=== PATIENT | male | born 1970 | race Caucasian/White ===

== ENCOUNTER 2020-09-07 01:43 | Observation (INO) | payer BC, OTHER ==
--- NOTE | 2020-09-07 02:09 | ED ---
Recheck HPI - General Chief Complaint: Abdominal Pain Stated Complaint: Abd Pain Time Seen by Provider: 09/07/20 01:54 Source: patient, EMS, RN notes reviewed, old records reviewed Mode of arrival: EMS Limitations: no limitations - History of Present Illness Initial Comments: This is a 49-year-old male DF for evaluation patient presents today for evalua tion of persistent recurrent pain abdominal pain that is severe with nausea vomiting some dizziness. Also had a headache. Patient accepted in transfer for evaluation. Patient's found to have a renal cell carcinoma with possible tumor on CT needs clarification by MR. Patient is complaining of abdominal pain now is dizziness. Patient's pain is intractable. MD Complaint: medication refill request, other (Severe pain) Returns Today for: persistent/worsening pain related to initial visit Symptoms Since Prior Visit: worsening pain Associated Symptoms: nausea, abdominal pain - Related Data Home Medications Medication Instructions Recorded Confirmed Ibuprofen [Motrin] 200 mg PO Q6HR PRN 05/20/14 05/20/14 Omeprazole [PriLOSEC] 20 mg PO AC-BRKFST 05/20/14 05/20/14 Allergies Allergy/AdvReac Type Severity Reaction Status Date / Time No Known Allergies Allergy Verified 05/20/14 17:43 Review of Systems ROS Statement: Those systems with pertinent positive or pertinent negative responses have been documented in the HPI. ROS Other: All systems not noted in ROS Statement are negative. Past Medical History Past Medical History: GERD/Reflux History of Any Multi-Drug Resistant Organisms: None Reported Past Surgical History: Appendectomy, Cholecystectomy, Hernia Repair Additional Past Surgical History / Comment(s): cataract Past Psychological History: No Psychological Hx Reported Smoking Status: Current every day smoker Past Alcohol Use History: Occasional Past Drug Use History: None Reported - Past Family History Father Family Medical History: No Reported History General Exam General appearance: alert, in no apparent distress, anxious Head exam: Present: atraumatic, normocephalic, normal inspection Eye exam: Present: normal appearance, PERRL, EOMI. Absent: scleral icterus, conjunctival injection, periorbital swelling ENT exam: Present: normal exam, mucous membranes moist Neck exam: Present: normal inspection. Absent: tenderness, meningismus, lymphadenopathy Respiratory exam: Present: normal lung sounds bilaterally. Absent: respiratory distress, wheezes, rales, rhonchi, stridor Cardiovascular Exam: Present: regular rate, normal rhythm, normal heart sounds. Absent: systolic murmur, diastolic murmur, rubs, gallop, clicks GI/Abdominal exam: Present: soft, normal bowel sounds. Absent: distended, tenderness, guarding, rebound, rigid Extremities exam: Present: normal inspection, full ROM, normal capillary refill. Absent: tenderness, pedal edema, joint swelling, calf tenderness Back exam: Present: normal inspection Neurological exam: Present: alert, oriented X3, CN II-XII intact Psychiatric exam: Present: normal affect, normal mood Skin exam: Present: warm, dry, intact, normal color. Absent: rash Course Vital Signs 09/07/20 01:53 Temperature 98.7 F Pulse Rate 59 L Respiratory 18 Rate Blood Pressure 137/90 O2 Sat by Pulse 97 Oximetry - Reevaluation(s) Reevaluation #1: 09/07/20 02:12 Medical record is reviewed 09/07/20 02:12 Transferring paperwork is reviewed 09/07/20 02:12 Did speak with transferring physician regarding patient Reevaluation #2: 09/07/20 02:12 Patient started to be In significant pain here in the ER Reevaluation #3: 09/07/20 02:12 Patient informed of results and plan questions answered Medical Decision Making - Medical Decision Making 49 male DF for evaluation severe abdominal pain. Intractable pain. Patient be admitted for pain control, he does have incidental renal cell carcinoma possible brain tumor which will be admitted for neurology an MR today. - EKG Data -: EKG Interpreted by Me (EKG is sinus rhythm 66 [place] 146 QRS 94 QTC 427) Disposition Clinical Impression: Abdominal pain, Renal cell carcinoma, Intractable pain, Chest pain Disposition: ADMITTED IP TO THIS HOSP Condition: Good Is patient prescribed a controlled substance at d/c from ED?: No Referrals: Nonstaff,Physician [Primary Care Provider] - 1-2 days
[2020-09-07] MEDS ORDERED: NALOXONE 0.4 MG/ML 1 ML VIAL IV PRN (02:17)
[2020-09-07] MEDS ORDERED: ONDANSETRON 4 MG/2 ML VIAL IVP PRN (02:17)
[2020-09-07] MEDS: MORPHINE SULFATE 4 MG/ML SYRINGE IV PRN ×2 (02:40→13:29)
[2020-09-07 02:44] LABS: INR 1.1 (<1.2); Partial Thromboplastin Time 23.7 sec (22.0-30.0); Prothrombin Time 11.3 sec (9.0-12.0)
[2020-09-07] MEDS: SODIUM CHLORIDE 0.9% 1,000 ML IV SCH ×2 (02:45→10:17)
[2020-09-07 02:48] LABS: ALT 175 U/L (4-49); AST 244 U/L (17-59); African American GFR (CKD) >90 (>60 ml/min/1.73 sqM); Albumin 3.7 g/dL (3.5-5.0); Alkaline Phosphatase 80 U/L (38-126); Anion Gap 5 mmol/L; Blood Urea Nitrogen 7 mg/dL (9-20); Calcium 8.3 mg/dL (8.4-10.2); Carbon Dioxide 28 mmol/L (22-30); Chloride 104 mmol/L (98-107); Creatine Kinase 61 U/L (55-170); Glucose 104 mg/dL (74-99); Magnesium 1.8 mg/dL (1.6-2.3); Non-African American GFR(CKD) >90 (>60 ml/min/1.73 sqM); Phosphorus 3.4 mg/dL (2.5-4.5); Sodium 137 mmol/L (137-145); Total Bilirubin 2.1 mg/dL (0.2-1.3); Total Protein 6.2 g/dL (6.3-8.2)
[2020-09-07 03:06] LABS: Potassium 4.2 mmol/L (3.5-5.1)
[2020-09-07 03:28] LABS: Basophils % (A) 0 %; Eosinophils # (A) 0.1 k/uL (0-0.7); Eosinophils % (A) 1 %; HCT 44.4 % (39.0-53.0); HGB 15.1 gm/dL (13.0-17.5); Lymphocytes % (A) 12 %; MCH 30.1 pg (25.0-35.0); MCV 88.7 fL (80.0-100.0); Mean Platelet Volume 8.5; Monocytes # (A) 0.6 k/uL (0-1.0); Monocytes % (A) 7 %; Neutrophils # (A) 6.6 k/uL (1.3-7.7); Neutrophils % (A) 79 %; Platelet Count 118 k/uL (150-450); RBC 5.01 m/uL (4.30-5.90); RDW 13.6 % (11.5-15.5); WBC 8.4 k/uL (3.8-10.6)
[2020-09-07] MEDS ORDERED: ASPIRIN 325 MG TAB PO STA (04:31)
[2020-09-07 04:34] LABS: Appearance,Urine Clear (Clear); Bilirubin,Urine 1+ (Negative); Blood,Urine Negative (Negative); Color,Urine Yellow; Glucose,Urine (UA) Negative (Negative); Ketones,Urine Negative (Negative); Leukocyte Esterase,Urine Negative (Negative); Nitrite,Urine Negative (Negative); Protein,Urine Negative (Negative)
--- NOTE | 2020-09-07 04:37 | P.HPIM ---
History of Present Illness H&P Date: 09/07/20 The patient is a 49 yo M with a PMh of tobacco abuse who was sent to the hospital from [facility] where he presented earlier today with complaints of chest pain and abdominal pain. The patient reported that his symptoms initially started on this past Sunday with a cough that was persistent and followed by 10 episodes of nonbloody nonbilious emesis. He reports that those symptoms had subsided by Sunday when he then developed a nonpruritic substernal chest discomfort. He reports that the pain was 5 out of 10 in intensity, nonradiating, constant, with no alleviating or exacerbating features, pressure- like in nature, with associated nausea. Denied associated shortness of breath, or dizziness. He reports also having developed a diffuse lower abdominal discomfort also on Sunday, also 5 out of 10 at maximal intensity, without alleviating or exacerbating features. He further reported bilateral headache but denied unilateral weakness, numbness, tingling, or visual disturbances. Endocrine extensive evaluation at the facility with a CT head, abdomen, and pelvis showing a right renal mass highly suspicious for renal cell carcinoma. Furthermore an asymmetric calcification of the right frontal horn choroid plexus with underlying mass not excluded. The chest CTA revealed COPD with no findings for PE. At time of interview, the patient reported that his chest pain had resolved after receiving Dilaudid at the other facility and denied having any at the time of interview. He however reported ongoing abdominal pain but denied diarrhea or further vomiting. EKG in the emergency room revealed normal sinus rhythm at [address]/T-wave changes noted as reviewed by me. Laboratory evaluation was remarkable for platelet count of 118, total bilirubin 2.1, AST 44, and ALT 175 with troponin less than 0.012. Review of systems: Pertinent positives and negatives as discussed in HPI, a complete review of systems was performed and all other systems are negative. Physical examination: General: non toxic, no distress, appears at stated age, obese Derm: no unusual rashes/lesions no unusual ecchymoses, warm, dry Head: atraumatic, normocephalic, symmetric Eyes: EOMI, no lid lag, anicteric sclera, pupils equal round reactive to light ENT: Nose and ears atraumatic, no thrush, no pharyngeal erythema Neck: No thyromegaly, no cervical lymphadenopathy, trachea midline, supple Mouth: no lip lesion, mucus membranes moist Cardiovascular: S1S2 reg, no murmur, positive posterior tibial pulse bilateral, no edema, capillary refill less than 2 seconds Lungs: CTA bilateral, no rhonchi, no rales , no accessory muscle use Abdominal: soft, nontender to palpation, no guarding, no appreciable organomegaly, normal bowel sounds Ext: no gross muscle atrophy, muscle strength 5 out of 5 in all 4 extremities grossly, no contractures, Neuro: CN II-XI grossly intact, light touch intact all 4 extremities, finger to nose within normal limits, Psych: Alert, oriented, appropriate affect Assessment/plan Chest pain, rule out ACS -Cardiology consult -Trend troponin -Cardiac monitoring -Continue with aspirin Renal mass -Interventional radiology consult for biopsy Abnormal CT brain with asymmetrical calcification -Obtain MRI DVT prophylaxis -Heparin subq The patient is admitted with an anticipated less than 2 midnight stay for evaluation of chest pain CODE STATUS: Full Code Discussed with: Patient Anticipated discharge date: in am Anticipated discharge place: Home Past Medical History Past Medical History: GERD/Reflux History of Any Multi-Drug Resistant Organisms: None Reported Past Surgical History: Appendectomy, Cholecystectomy, Hernia Repair Additional Past Surgical History / Comment(s): cataract Past Psychological History: No Psychological Hx Reported Smoking Status: Current every day smoker Past Alcohol Use History: Occasional Past Drug Use History: None Reported - Past Family History Father Family Medical History: No Reported History Medications and Allergies Home Medications Medication Instructions Recorded Confirmed Type Ibuprofen [Motrin] 200 mg PO Q6HR PRN 05/20/14 05/20/14 History Omeprazole [PriLOSEC] 20 mg PO AC-BRKFST 05/20/14 05/20/14 History Allergies Allergy/AdvReac Type Severity Reaction Status Date / Time No Known Allergies Allergy Verified 05/20/14 17:43 Physical Exam Vitals: Vital Signs Temp Pulse Resp BP Pulse Ox 09/07/20 01:53 98.7 F 59 L 18 137/90 97 Intake and Output 09/06/20 09/06/20 09/07/20 14:59 22:59 06:59 Other: Weight 129.274 kg Results CBC & Chem 7: 09/07/20 02:10 09/07/20 02:10 Labs: Abnormal Lab Results - Last 24 Hours (Table) 09/07/20 09/07/20 Range/Units 02:10 02:10 Plt Count 118 L (150-450) k/uL BUN 7 L (9-20) mg/dL Creatinine 0.54 L (0.66-1.25) mg/dL Glucose 104 H (74-99) mg/dL Calcium 8.3 L (8.4-10.2) mg/dL Total Bilirubin 2.1 H (0.2-1.3) mg/dL AST 244 H (17-59) U/L ALT 175 H (4-49) U/L Total Protein 6.2 L (6.3-8.2) g/dL
[2020-09-07] MEDS ORDERED: PROCHLORPERAZINE INJ 10 MG/2 ML VIAL IVP STA (08:37)
[2020-09-07] MEDS ORDERED: KETOROLAC 15 MG/ML 1 ML VIAL IVP STA (08:37)
--- NOTE | 2020-09-07 08:37 | P.PN ---
<Kiko Vasquez - Last Filed: 09/07/20 15:06> Subjective Progress Note Date: 09/07/20 Hospital course: Patient is a 49-year-old male with a past medical history of nicotine dependence who presented to our hospital as a transfer from [facility] with a chief complaint of chest pain and abdominal pain accompanied by nausea and vomiting with CT abdomen and pelvis findings reportedly revealing a right renal mass highly suspicious for renal carcinoma. CT head also reportedly completed showing asymmetric calcification of the right frontal horn choroid plexus with underlying mass not excluded. Patient admitted under our services with consultation to cardiology, interventional radiology, and urology. Laboratory findings significant for thrombocytopenia with platelet count of 118,000 and transaminitis with AST of 244, ALT of 175, and total bili of 2.1. Physical exam: Patient was seen and fully evaluated at the bedside in the emergency department this morning. Patient reports that will not go away but currently reports chest pain, muscle pain, and nausea is controlled. Patient denies further episodes of vomiting or experiencing any lightheadedness, dizziness, palpitations, shortness of breath, or experiencing any focal numbness/weakness/tingling in his extremities. Patient currently awaiting to go down for MRI of brain with and without contrast. Migraine cocktail to be administered with Toradol, Benadryl, and Compazine. Vital signs reviewed and stable. General: Nontoxic, no distress and appears stated age. Derm: Skin warm and dry, normal coloration for ethnicity. Head: Atraumatic, normocephalic and symmetric. Eyes: EOMs intact, no lid lag, and anicteric sclera Mouth: no lip lesions, mucus membranes moist Cardiovascular: regular rate and rhythm with normal S1S2, no murmur, positive posterior tibial pulses bilaterally, and cap refill < 2 seconds. Lungs: Respirations even, regular, and unlabored on room air. Lungs CTA bilaterally, no rhonchi, no rales, no wheezing, and no accessory muscle usage. Abdominal: soft, nontender to palpation, no guarding, no appreciable organomegaly Ext: ROM intact. No gross muscle atrophy, no edema, no contractures Neuro: Speech clear, face symmetrical and CN II-XII grossly intact with no noted focal neuro deficits Psych: Alert and oriented to person, place, time, and situation. Appropriate and pleasant affect. Assessment and Plan of Care: Abdominal pain, nausea, and vomiting with abnormal CT abdomen and pelvis suspicious for renal mass -CT abdomen and pelvis findings reportedly revealing a right renal mass highly suspicious for renal carcinoma. -IR consulted -Urology consulted Headache with abnormal CT brain findings -CT brain reportedly showing asymmetric calcification of the right frontal horn choroid plexus with underlying mass not excluded. -MRI brain with and without contrast to be completed Chest pain, rule out acute coronary event -EKG showing normal sinus rhythm at 66 bpm with no noted T-wave or ST abnormalities. -Echocardiogram revealing a normal EF between 55 and 60% and moderate tricuspid regurgitation and moderate to severe pulmonary hypertension. -Troponins trended < 0.012 x2 -Cardiology following, appreciate further recommendations. -Continue telemetry monitoring. Transaminitis -Transaminitis with AST of 244, ALT of 175, and total bili of 2.1. -Possibly reactive secondary to nausea and vomiting however it is a possible underlying metastatic process and further testing being completed. -We will continue to monitor closely with repeat a.m. labs. Thrombocytopenia -Thrombocytopenia with platelet count of 118,000. -Thrombocytopenia of unknown origin and possibly secondary to underlying metastatic process that is currently being looked into. CODE STATUS: Full code DVT prophylaxis: Heparin Discussed with: Patient and RN Anticipated discharge date: Clinical course to determine Anticipated discharge place: Home A total of 45 minutes was spent on the care of this complex patient more than 50% of the time was spent in counseling and care coordination. Objective - Vital Signs Vital signs: Vital Signs Temp 98.7 F 09/07/20 01:53 Pulse 71 09/07/20 06:00 Resp 18 09/07/20 01:53 BP 117/86 09/07/20 06:00 Pulse Ox 98 09/07/20 06:00 Intake & Output 09/06/20 09/07/20 09/07/20 18:59 06:59 18:59 Weight 129.274 kg - Labs CBC & Chem 7: 09/07/20 02:10 09/07/20 02:10 Labs: Abnormal Lab Results - Last 24 Hours (Table) 09/07/20 09/07/20 09/07/20 Range/Units 02:10 02:10 04:08 Plt Count 118 L (150-450) k/uL BUN 7 L (9-20) mg/dL Creatinine 0.54 L (0.66-1.25) mg/dL Glucose 104 H (74-99) mg/dL Calcium 8.3 L (8.4-10.2) mg/dL Total Bilirubin 2.1 H (0.2-1.3) mg/dL AST 244 H (17-59) U/L ALT 175 H (4-49) U/L Total Protein 6.2 L (6.3-8.2) g/dL Ur Specific [place] 1.050 H (1.001-1.035) Urine Bilirubin 1+ H (Negative) <Linnea Palacio - Last Filed: 09/07/20 18:53> Subjective Kiko Vasquez NP rendered care for this patient independently, reviewed the findings and plan as documented in the note above. I did not physically speak with or examine the patient on this date. Case discussed with interventional radiology. Will not biopsy kidney and we'll proceed with urology consultation in time. MRI brain reviewed which was normal in appearance. Echo within normal limits. Objective - Vital Signs Vital signs: Vital Signs Temp 98.5 F 09/07/20 17:11 Pulse 74 09/07/20 17:11 Resp 16 09/07/20 17:11 BP 163/83 09/07/20 17:11 Pulse Ox 97 09/07/20 17:11 Intake & Output 09/06/20 09/07/20 09/07/20 18:59 06:59 18:59 Intake Total 650 Balance 650 Weight 129.274 kg 129.274 kg Intake: IV 650 Sodium Chloride 0.9% 1, 650 000 ml @ 130 mls/hr IV . Q7H42M [facility] [place] Rx#:[id number] Other: # Voids 1 - Labs CBC & Chem 7: 09/07/20 02:10 09/07/20 02:10 Labs: Abnormal Lab Results - Last 24 Hours (Table) 09/07/20 09/07/20 09/07/20 Range/Units 02:10 02:10 04:08 Plt Count 118 L (150-450) k/uL BUN 7 L (9-20) mg/dL Creatinine 0.54 L (0.66-1.25) mg/dL Glucose 104 H (74-99) mg/dL Calcium 8.3 L (8.4-10.2) mg/dL Total Bilirubin 2.1 H (0.2-1.3) mg/dL AST 244 H (17-59) U/L ALT 175 H (4-49) U/L Total Protein 6.2 L (6.3-8.2) g/dL Ur Specific [place] 1.050 H (1.001-1.035) Urine Bilirubin 1+ H (Negative)
--- NOTE | 2020-09-07 08:41 | P.CRDCN ---
History of Present Illness Consult date: 09/07/20 History of present illness: This is a very pleasant 49-year-old gentleman who we are asked to see in the emergency department as a consult for further evaluation of chest discomfort. The patient was transferred from different facility after he presented with a few days of symptoms of abdominal discomfort associated with nausea and vomiting on for the last 24 hours to chest discomfort. At the other facility the patient underwent a computed tomography scan of the abdomen and pelvis and that revealed right renal mass and currently he is in process of having an MRI for further clarification with also possible biopsy. He described the chest discomfort as squeezing sensation across the chest but currently he is chest pain-free. His main complaint at this point when he was seen in the emergency department his abdominal discomfort associated with nausea and vomiting. On examination he does have mild lower abdominal tenderness. In terms of the workup he underwent an EKG and that showed sinus rhythm without any significant ST or T-wave abnormalities. The cardiac enzymes came in to be unremarkable. The rest of his workup came in to be unremarkable except for elevated bilirubin. The patient does have history of smoking. No other comorbidities. He does also have history of coronary artery disease runs in his family. As a mentioned earlier currently is chest pain-free. Past Medical History Past Medical History: GERD/Reflux History of Any Multi-Drug Resistant Organisms: None Reported Past Surgical History: Appendectomy, Cholecystectomy, Hernia Repair Additional Past Surgical History / Comment(s): cataract Past Psychological History: No Psychological Hx Reported Smoking Status: Current every day smoker Past Alcohol Use History: Occasional Past Drug Use History: None Reported - Past Family History Father Family Medical History: No Reported History Medications and Allergies Home Medications Medication Instructions Recorded Confirmed Type Omeprazole [PriLOSEC] 20 mg PO AC-BRKFST 05/20/14 09/07/20 History Allergies Allergy/AdvReac Type Severity Reaction Status Date / Time No Known Allergies Allergy Verified 09/07/20 06:25 Physical Exam Vitals: Vital Signs Temp Pulse Resp BP Pulse Ox 09/07/20 06:00 71 117/86 98 09/07/20 01:53 98.7 F 59 L 18 137/90 97 Intake and Output 09/06/20 09/07/20 09/07/20 22:59 06:59 14:59 Other: Weight 129.274 kg - Constitutional General appearance: no acute distress - Respiratory Respiratory: bilateral: diminished - Cardiovascular Rhythm: regular Heart sounds: normal: S1, S2 Abnormal Heart Sounds: systolic murmur Results 09/07/20 02:10 09/07/20 02:10 Cardiac Enzymes 09/07/20 09/07/20 09/07/20 Range/Units 02:10 02:10 05:01 AST 244 H (17-59) U/L Troponin I <0.012 <0.012 (0.000-0.034) ng/mL Coagulation 09/07/20 Range/Units 02:10 PT 11.3 (9.0-12.0) sec APTT 23.7 (22.0-30.0) sec CBC 09/07/20 Range/Units 02:10 WBC 8.4 (3.8-10.6) k/uL RBC 5.01 (4.30-5.90) m/uL Hgb 15.1 (13.0-17.5) gm/dL Hct 44.4 (39.0-53.0) % Plt Count 118 L (150-450) k/uL Comprehensive Metabolic Panel 09/07/20 Range/Units 02:10 Sodium 137 (137-145) mmol/L Potassium 4.2 (3.5-5.1) mmol/L Chloride 104 (98-107) mmol/L Carbon Dioxide 28 (22-30) mmol/L BUN 7 L (9-20) mg/dL Creatinine 0.54 L (0.66-1.25) mg/dL Glucose 104 H (74-99) mg/dL Calcium 8.3 L (8.4-10.2) mg/dL AST 244 H (17-59) U/L ALT 175 H (4-49) U/L Alkaline Phosphatase 80 (38-126) U/L Total Protein 6.2 L (6.3-8.2) g/dL Albumin 3.7 (3.5-5.0) g/dL Current Medications Generic Name Dose Route Start Last Admin Trade Name Freq PRN Reason Stop Dose Admin Heparin Sodium (Porcine) 5,000 unit 09/07/20 08:00 Heparin Sodium,Porcine/Pf 5,000 Unit/0.5 Ml Syringe SQ Q8HR EMILY Sodium Chloride 1,000 mls @ 130 mls/hr 09/07/20 02:30 09/07/20 02:45 Saline 0.9% IV 130 mls/hr .Q7H42M EMILY Administration Morphine Sulfate 4 mg 09/07/20 02:17 09/07/20 02:40 Morphine Sulfate 4 Mg/Ml Syringe IV 4 mg Q4HR PRN Administration Severe Pain Naloxone HCl 0.2 mg 09/07/20 02:17 Naloxone 0.4 Mg/Ml 1 Ml Vial IV Q2M PRN Opioid Reversal Ondansetron HCl 4 mg 09/07/20 02:17 09/07/20 03:01 Ondansetron 4 Mg/2 Ml Vial IVP 4 mg Q8HR PRN Administration Nausea And Vomiting Pantoprazole Sodium 40 mg 09/07/20 08:00 Pantoprazole 40 Mg Tablet PO AC-BRKFST EMILY Intake and Output 09/06/20 09/07/20 09/07/20 22:59 06:59 14:59 Other: Weight 129.274 kg 09/07/20 02:10 09/07/20 02:10 Assessment and Plan Assessment: Assessment #1 atypical chest discomfort #2 abdominal discomfort associated with nausea and vomiting #3 right renal mass in process of getting workup with MRI and possible biopsy #4 history of smoking Plan #1 acute coronary event was ruled out #2 I would hold on any further cardiac workup at this point as far as the patient is chest pain-free #3 further recommendation to follow complete evaluation of the renal mass and rule out malignancy #4 obtain an echocardiogram was Doppler at this point #5 follow-up with the patient
[2020-09-07] MEDS: HEPARIN SODIUM,PORCINE/PF 5,000 UNIT/0.5 ML SYRINGE SQ SCH ×2 (08:57→14:34)
[2020-09-07] MEDS: PANTOPRAZOLE 40 MG TABLET PO SCH (10:17)
[2020-09-07] MEDS: diphenhydrAMINE 50 MG/ML 1 ML VIAL IVP STA (10:18)
--- NOTE | 2020-09-07 11:33 | ECHOF ---
Referral Reason:murmur MEASUREMENTS -------- HEIGHT: 182.9 cm WEIGHT: 129.3 kg BP: 117/66 RVIDd: 4.3 cm (< 3.3) IVSd: 1.7 cm (0.6 - 1.1) LVIDd: 5.3 cm (3.9 - 5.3) LVPWd: 1.5 cm (0.6 - 1.1) IVSs: 2.1 cm LVIDs: 3.4 cm LVPWs: 1.8 cm LAESV Index (A-L): 40.16 ml/m Ao Diam: 3.7 cm (2.0 - 3.7) AV Cusp: 2.8 cm (1.5 - 2.6) LA Diam: 4.6 cm (2.7 - 3.8) MV EXCURSION: 21.081 mm (> 18.000) MV EF SLOPE: 142 mm/s (70 - 150) EPSS: 0.5 cm MV E Danny: 0.62 m/s MV DecT: 257 ms MV A Danny: 0.76 m/s MV E/A Ratio: 0.81 RAP: 5.00 mmHg RVSP: 51.93 mmHg FINDINGS -------- Sinus rhythm. This was a technically adequate study. The left ventricular size is normal. There is moderate concentric left ventricular hypertrophy. O verall left ventricular systolic function is normal with, an EF between 55 - 60 %. The diastolic fi lling pattern is normal for the age of the patient {E/E'}. The right ventricle is moderate to severely enlarged. LA is moderately dilated 34-39 ml/m2 The right atrium is mildly enlarged. Interatrial and interventricular septum intact. The aortic valve is trileaflet and appears structurally normal. There is no evidence of aortic regu rgitation. There is no evidence of aortic stenosis. Mild mitral regurgitation is present. Moderate tricuspid regurgitation present. There is moderate to severe pulmonary hypertension. The right ventricular systolic pressure, as measured by Doppler, is 51.93mmHg. Trace/mild (physiologic) pulmonic regurgitation. The aortic root size is normal. Normal inferior vena cava with normal inspiratory collapse consistent with estimated right atrial pre ssure of 5 mmHg. There is no pericardial effusion. CONCLUSIONS -------- 1. The left ventricular size is normal. 2. There is moderate concentric left ventricular hypertrophy. 3. Overall left ventricular systolic function is normal with, an EF between 55 - 60 %. 4. The diastolic filling pattern is normal for the age of the patient {E/E'} 5. The right ventricle is moderate to severely enlarged. 6. LA is moderately dilated 34-39 ml/m2 7. The right atrium is mildly enlarged. 8. Mild mitral regurgitation is present. 9. Moderate tricuspid regurgitation present. 10. There is moderate to severe pulmonary hypertension. 11. The right ventricular systolic pressure, as measured by Doppler, is 51.93mmHg. 12. Trace/mild (physiologic) pulmonic regurgitation. INSTRUCTOR PHYSICAL: Marissa Rodgers RDCS
[2020-09-07] MEDS ORDERED: LORazepam 2 MG/ML INJ IV STA (12:52)
--- NOTE | 2020-09-07 15:39 | MR ---
EXAMINATION TYPE: MR brain wo/w con DATE OF EXAM: 09/07/2020 COMPARISON: CT brain 09/06/2020 HISTORY: Assymetric calcification of right frontal horn. CONTRAST: Performed utilizing 13 mL intravenous Gadavist gadolinium contrast. TECHNIQUE: Multiplanar, multiecho imaging on a 3.0 Chantale magnet is performed through the brain. Stud y is performed within 24 hours of arrival to the hospital. The craniovertebral junction is normal. The pituitary is normal. Subependymoma calcifications not i dentified on the MRI. Consider tuberous sclerosis. Findings can be congenital. No associated enhancin g mass is identified. Diffusion-weighted imaging is performed. No abnormal hyperintensity is present to suggest an acute i ntracranial infarct or acute ischemic change. There are scattered punctate areas of hyperintensity on T2 and Inversion Recovery weighted sequences which are non-specific but can be related to microvascular ischemic changes. Ventricles and sulci are appropriate for the patient age. No enhancing mass is evident at the level of the calcification IMPRESSIONS: 1. Normal appearance MRI brain pre and postcontrast. 2. The right subependymal calcification is not identified on the MRI examination.
[2020-09-08] MEDS: HEPARIN SODIUM,PORCINE/PF 5,000 UNIT/0.5 ML SYRINGE SQ SCH ×2 (07:09→07:48)
[2020-09-08] MEDS: SODIUM CHLORIDE 0.9% 1,000 ML IV SCH ×2 (07:09→10:27)
[2020-09-08 07:35] VITALS: BP 145/88; PULSE 74; RESP 16; TEMP 97.9
[2020-09-08] MEDS: PANTOPRAZOLE 40 MG TABLET PO SCH (07:52)
[2020-09-08] MEDS: MORPHINE SULFATE 4 MG/ML SYRINGE IV PRN (07:52)
[2020-09-08] MEDS ORDERED: LORazepam 2 MG/ML INJ IV ONE (08:00)
--- NOTE | 2020-09-08 09:54 | P.PN ---
Subjective Progress Note Date: 09/08/20 HISTORY OF PRESENT ILLNESS: This is a very pleasant 49-year-old gentleman who we are asked to see in the emergency department as a consult for further evaluation of chest discomfort. The patient was transferred from different facility after he presented with a few days of symptoms of abdominal discomfort associated with nausea and vomiting on for the last 24 hours to chest discomfort. At the other facility the patient underwent a computed tomography scan of the abdomen and pelvis and that revealed right renal mass and currently he is in process of having an MRI for further clarification with also possible biopsy. He described the chest discomfort as squeezing sensation across the chest but currently he is chest pain-free. His main complaint at this point when he was seen in the emergency department his abdominal discomfort associated with nausea and vomiting. On examination he does have mild lower abdominal tenderness. In terms of the workup he underwent an EKG and that showed sinus rhythm without any significant ST or T-wave abnormalities. The cardiac enzymes came in to be unremarkable. The rest of his workup came in to be unremarkable except for elevated bilirubin. The patient does have history of smoking. No other comorbidities. He does also have history of coronary artery disease runs in his family. As a mentioned earlier currently is chest pain-free. 09/08/2020 Patient examined this morning at bedside. Patient denies chest pain or pressure. He denies shortness of breath. Echocardiogram completed reveals ejection fraction 55-60%. Mild mitral regurgitation. Moderate tricuspid regurgitation. Moderate to severe pulmonary hypertension. PHYSICAL EXAM: VITAL SIGNS: Reviewed. GENERAL: Well-developed in no acute distress. NECK: Supple. No JVD or thyromegaly LUNGS: Respirations even and unlabored. Lungs essentially clear to auscultation bilaterally. HEART: Regular rate and rhythm. S1 and S2 heard. Systolic murmur noted. EXTREMITIES: Normal range of motion. No clubbing or cyanosis. Peripheral pul ses intact. No lower extremity edema ASSESSMENT: Chest pain, atypical, acute coronary syndrome ruled out Abdominal discomfort with nausea and vomiting Right renal mass History of nicotine dependence PLAN: Further workup of possible renal mass per urology. No absolute contraindications to undergo procedure with urology from a cardiac standpoint. No further inpatient recommendations from a cardiac standpoint Patient is stable for discharge home from a cardiac perspective Patient is to follow up outpatient with Dr. Pagan Nurse practitioner note has been reviewed by physician. Signing provider agrees with the documented findings, assessment, and plan of care. Objective - Vital Signs Vital signs: Vital Signs Temp 97.9 F 09/08/20 07:00 Pulse 74 09/08/20 07:00 Resp 16 09/08/20 07:00 BP 145/88 09/08/20 07:00 Pulse Ox 94 L 09/08/20 07:00 Intake & Output 09/07/20 09/08/20 09/08/20 18:59 06:59 18:59 Intake Total 650 298 Balance 650 298 Weight 129.274 kg Intake: IV 650 Sodium Chloride 0.9% 1, 650 000 ml @ 130 mls/hr IV . Q7H42M [facility] Rx#:[id number] Oral 298 Other: Voiding Method Toilet # Voids 1 1 # Bowel Movements 1 - Labs CBC & Chem 7: 09/08/20 05:17 09/08/20 05:17
[2020-09-08 10:43] LABS: Basophils # (A) 0.02 X 10*3/uL (0.00-0.10); Basophils % (A) 0.3 %; Eosinophils # (A) 0.18 X 10*3/uL (0.04-0.35); HGB 14.6 g/dL (13.0-17.0); Lymphocytes # (A) 1.31 X 10*3/uL (0.90-5.00); Lymphocytes % (A) 22.1 %; MCV 88.5 fL (80.0-97.0); Mean Platelet Volume 11.1 fL (9.5-12.2); Monocytes # (A) 0.66 X 10*3/uL (0.20-1.00); Monocytes % (A) 11.1 %; Neutrophils # (A) 3.75 X 10*3/uL (1.80-7.70); Neutrophils % (A) 63.3 %; Platelet Count 127 X 10*3/uL (140-440); RBC 4.86 X 10*6/uL (4.40-5.60); RDW 12.7 % (11.5-14.5); WBC 5.93 X 10*3/uL (4.50-10.00)
[2020-09-08] MEDS ORDERED: ACETAMINOPHEN TAB 325 MG TAB PO PRN (10:50)
[2020-09-08] MEDS ORDERED: NICOTINE 21MG/24HR PATCH TRANSDERM SCH (12:00)
[2020-09-08 12:16] LABS: African American GFR (CKD) 134.9 (60.0-200.0); Albumin 3.5 g/dL (3.80-4.90); Albumin/Globulin Ratio 1.94 (1.60-3.17); Anion Gap 6.4 mmol/L (4.00-12.00); BUN/Creat Ratio 16.67 Ratio (12.00-20.00); Calcium 8.1 mg/dL (8.7-10.3); Carbon Dioxide 27.6 mmol/L (21.6-31.8); Globulin 1.8 g/dL (1.6-3.3); Magnesium 1.8 mg/dL (1.5-2.4); Non-African American GFR(CKD) 116.4 (60.0-200.0); Potassium 3.7 mmol/L (3.5-5.5); Total Bilirubin 0.9 mg/dL (0.3-1.2); Total Protein 5.3 g/dL (6.2-8.2)
[2020-09-08] MEDS ORDERED: diazePAM 5 MG TAB PO STA (13:08)
--- NOTE | 2020-09-08 13:50 | P.PN ---
Subjective Progress Note Date: 09/08/20 No new complaints. Pending urology consultation re: renal mass. Objective - Vital Signs Vital signs: Vital Signs Temp 97.9 F 09/08/20 07:00 Pulse 74 09/08/20 08:00 Resp 16 09/08/20 08:00 BP 145/88 09/08/20 07:00 Pulse Ox 94 L 09/08/20 07:00 Intake & Output 09/07/20 09/08/20 09/08/20 18:59 06:59 18:59 Intake Total 650 298 Balance 650 298 Weight 129.274 kg Intake: IV 650 Sodium Chloride 0.9% 1, 650 000 ml @ 130 mls/hr IV . Q7H42M [facility] Rx#:[id number] Oral 298 Other: Voiding Method Toilet Toilet # Voids 1 1 # Bowel Movements 1 - Exam Gen: awake, alert HEENT: normocephalic, atraumatic, good hearing acuity, moist mucous membranes Resp: good air exchange, breathing comfortably with no accessory muscle use CVS: good distal perfusion x 4, GI: soft, NTTP, ND : no SPT, no CVAT, hanson catheter not present MSK: no pitting edema, no clubbing Neuro: non-focal, moving all extremities Psych: cooperative, euthymic mood - Labs CBC & Chem 7: 09/08/20 05:17 09/08/20 05:17 Labs: Abnormal Lab Results - Last 24 Hours (Table) 09/08/20 09/08/20 Range/Units 05:17 05:17 Plt Count 127 L (140-440) X 10*3/uL Calcium 8.1 L (8.7-10.3) mg/dL AST 55 H (14-35) U/L ALT 126 H (10-49) U/L Total Protein 5.3 L (6.2-8.2) g/dL Albumin 3.50 L (3.80-4.90) g/dL Assessment and Plan Assessment: Abdominal pain, nausea, and vomiting with abnormal CT abdomen and pelvis suspicious for renal mass -CT abdomen and pelvis findings reportedly revealing a right renal mass highly suspicious for renal carcinoma. -Urology consulted Headache with abnormal CT brain findings -CT brain reportedly showing asymmetric calcification of the right frontal horn choroid plexus with underlying mass not excluded. -MRI brain with and without contrast to be completed = normal MRI Chest pain, rule out acute coronary event -EKG showing normal sinus rhythm at 66 bpm with no noted T-wave or ST abnormalities. -Echocardiogram revealing a normal EF between 55 and 60% and moderate tricuspid regurgitation and moderate to severe pulmonary hypertension. -Troponins trended < 0.012 x2 -Cardiology following, appreciate further recommendations. -Continue telemetry monitoring. Transaminitis -Transaminitis with AST of 244, ALT of 175, and total bili of 2.1. -Possibly reactive secondary to nausea and vomiting however it is a possible underlying metastatic process and further testing being completed. -We will continue to monitor closely with repeat a.m. labs. Thrombocytopenia -Thrombocytopenia with platelet count of 118,000. -Thrombocytopenia of unknown origin and possibly secondary to underlying metastatic process that is currently being looked into. CODE STATUS: Full code DVT prophylaxis: Heparin Discussed with: Patient and RN Anticipated discharge date: Clinical course to determine Anticipated discharge place: Home
--- NOTE | 2020-09-08 14:53 | P.DS ---
Providers Date of admission: 09/07/20 02:23 Expected date of discharge: 09/08/20 Attending physician: Eva Dunne MD Consults: 09/07/20 15:38 Consult Physician Routine Consulting Provider: Danny Rubio Consult Reason/Comments: Abdominal pain with abnormal CT showing possible renal mass Do you want consulting provider notified?: Yes Primary care physician: Physician Nonstaff Hospital Course: Abdominal pain, nausea, and vomiting with abnormal CT abdomen and pelvis suspicious for renal mass -CT abdomen and pelvis findings reportedly revealing a right renal mass highly suspicious for renal carcinoma. Urology consulted and recommended discharge with plan for nephrectomy on 09/09 and PET/CT on 09/10. Headache with abnormal CT brain findings -CT brain reportedly showing asymmetric calcification of the right frontal horn choroid plexus with underlying mass not excluded. -MRI brain with and without contrast to be completed = normal MRI Chest pain, rule out acute coronary event -EKG showing normal sinus rhythm at 66 bpm with no noted T-wave or ST abnormalities. -Echocardiogram revealing a normal EF between 55 and 60% and moderate tricuspid regurgitation and moderate to severe pulmonary hypertension. -Troponins trended < 0.012 x2 -Cardiology ruled out ACS. Patient Condition at Discharge: Good Plan - Discharge Summary Discharge Rx Participant: Yes New Discharge Prescriptions: Continue Omeprazole [PriLOSEC] 20 mg PO AC-BRKFST Discharge Medication List Omeprazole [PriLOSEC] 20 mg PO AC-BRKFST 05/20/14 [History] Follow up Appointment(s)/Referral(s): Live Pagan MD [STAFF PHYSICIAN] - 1 Week Danny Rubio MD [STAFF PHYSICIAN] - 09/15/20 (please keep follow up that was scheduled for you by the property utilization officer. ) Nonstaff,Physician [Primary Care Provider] - 1-2 days Discharge Disposition: HOME SELF-CARE
--- NOTE | 2020-09-09 19:41 | P.GSCN ---
History of Present Illness Consult date: 09/08/20 Reason for Consult: right renal Mass History of present illness: Mr Armas is a 49 yo male that presents from [facility] with chest pain a nd abdominal pain. His also been complaining of headache and N/V. He underwent CT head, abdomen, and pelvis showing a right renal mass highly suspicious for renal cell carcinoma. Furthermore an asymmetric calcification of the right frontal horn choroid plexus, He had an MRI in [facility] which was negative . The chest CTA reveled no evidence of PE or lung mets, but it did show 2 enlarged hilar lymph nodes, one measured 1.4 cm and 1.6 cm. Cardiology has bee consulted and they evaluated the patient and they indicated no acute cardiac event and he was deemed cleared for surgery. He indicated his abdominal pain and chest pain has resolved. Denies any gross hematuria or flank pain. Denies any family hx of renal malignancy. Denies any voiding issues Review of Systems - Constitutional Denies fever, Denies weight loss - EENT Ears, nose, mouth and throat: Denies dysphagia - Cardiovascular Denies chest pain, Denies shortness of breath - Respiratory Denies cough, Denies 7 - Gastrointestinal Reports as per HPI - Genitourinary Denies dysuria, Denies hematuria - Neurological Denies headaches, Denies syncope Past Medical History Past Medical History: GERD/Reflux History of Any Multi-Drug Resistant Organisms: None Reported Past Surgical History: Appendectomy, Cholecystectomy, Hernia Repair Additional Past Surgical History / Comment(s): cataract Past Psychological History: No Psychological Hx Reported Smoking Status: Current every day smoker Past Alcohol Use History: Occasional Past Drug Use History: None Reported - Past Family History Father Family Medical History: No Reported History Medications and Allergies Home Medications Medication Instructions Recorded Confirmed Type Omeprazole [PriLOSEC] 20 mg PO AC-BRKFST 05/20/14 09/07/20 History Allergies Allergy/AdvReac Type Severity Reaction Status Date / Time No Known Allergies Allergy Verified 09/07/20 06:25 Surgical - Exam Vital Signs Temp Pulse Resp BP Pulse Ox 98.7 F 59 L 18 137/90 97 09/07/20 01:53 09/07/20 01:53 09/07/20 01:53 09/07/20 01:53 09/07/20 01:53 - General well developed, well nourished, no distress, no pain - Eyes PERRL, normal ocular movement - ENT normal nares, normal mucosa - Neck trachea midline, no venous distension - Respiratory normal expansion, normal respiratory effort - Abdomen Abdomen: soft, non tender - Neurologic normal coordination, normal sensation - Psychiatric oriented to time, oriented to person, oriented to place Results - Labs 09/08/20 05:17 09/08/20 05:17 Abnormal Lab Results - Last 24 Hours (Table) 09/08/20 09/08/20 Range/Units 05:17 05:17 Plt Count 127 L (140-440) X 10*3/uL Calcium 8.1 L (8.7-10.3) mg/dL AST 55 H (14-35) U/L ALT 126 H (10-49) U/L Total Protein 5.3 L (6.2-8.2) g/dL Albumin 3.50 L (3.80-4.90) g/dL Diabetes panel 09/08/20 Range/Units 05:17 Sodium 141 (135-145) mmol/L Potassium 3.7 (3.5-5.5) mmol/L Chloride 107 (96-109) mmol/L Carbon Dioxide 27.6 (21.6-31.8) mmol/L BUN 10.0 (9.0-27.0) mg/dL Creatinine 0.6 (0.6-1.5) mg/dL Glucose 103 (70-110) mg/dL Calcium 8.1 L (8.7-10.3) mg/dL AST 55 H (14-35) U/L ALT 126 H (10-49) U/L Alkaline Phosphatase 77 (41-126) U/L Total Protein 5.3 L (6.2-8.2) g/dL Albumin 3.50 L (3.80-4.90) g/dL Calcium panel 09/08/20 Range/Units 05:17 Calcium 8.1 L (8.7-10.3) mg/dL Phosphorus 3.0 (2.4-5.1) mg/dL Albumin 3.50 L (3.80-4.90) g/dL Pituitary panel 09/08/20 Range/Units 05:17 Sodium 141 (135-145) mmol/L Potassium 3.7 (3.5-5.5) mmol/L Chloride 107 (96-109) mmol/L Carbon Dioxide 27.6 (21.6-31.8) mmol/L BUN 10.0 (9.0-27.0) mg/dL Creatinine 0.6 (0.6-1.5) mg/dL Glucose 103 (70-110) mg/dL Calcium 8.1 L (8.7-10.3) mg/dL Adrenal panel 09/08/20 Range/Units 05:17 Sodium 141 (135-145) mmol/L Potassium 3.7 (3.5-5.5) mmol/L Chloride 107 (96-109) mmol/L Carbon Dioxide 27.6 (21.6-31.8) mmol/L BUN 10.0 (9.0-27.0) mg/dL Creatinine 0.6 (0.6-1.5) mg/dL Glucose 103 (70-110) mg/dL Calcium 8.1 L (8.7-10.3) mg/dL Total Bilirubin 0.9 (0.3-1.2) mg/dL AST 55 H (14-35) U/L ALT 126 H (10-49) U/L Alkaline Phosphatase 77 (41-126) U/L Total Protein 5.3 L (6.2-8.2) g/dL Albumin 3.50 L (3.80-4.90) g/dL Assessment and Plan Assessment: 49 yo male with 6 cm renal mass, discussed the finding of CT with him, Discussed on Imaging no evidence of pulmonary, liver or reteroperiotneal mets. Of not CT chest showed 1.4 and 1.6 cm hilar lymph nodes. From Cardiac standpoint he is cleared for surgery. I discussed the finding of the tumor with him I discussed with him the clinical course of renal cell carcinoma I discussed with him his different options. I discussed with him the option of renal mass biopsy. Discussed the risk of biopsy and potential of false negative and missing the tumor, discussed with him given size of tumor the potential of malignancy is > 90 %. Discussed the option of active surveillance, discussed what that would involve and the risk of metastatic disease. I discussed surgical option including radical nephrectomy and partial nephrectomy. Discussed the option of open vs Robotic Discussed with radical nephrectomy its a faster operation with lower risk, but is associated with more nephron loss. I discussed I next discussed partial nephrectomy include bleeding and can be life threatening bleeding, infection, injury to he nearby organs. Discussed risk of conversion to radical nephrectomy. I next discussed radical nephrectomy, discussed risk with that is bleeding, infection, injury to nearby organs. Discussed with both opera tion there is a risk of heart attack, strokes, blood clots and even . At this time the plan is Robotic partial nephrectomy possibile radical but discussed given size of tumor it's high likelhood of converting to radical nephrectomy. -[facility] for OR robotic right partial nephrectomy possibile radical on Sep 16 -Will plan on obtaining a PET scan for follow up to evaluate his Hilar lymph nodes
== END 2020-09-08 14:59 | disposition home or self-care (01) ==
LOC: EC 01:43 → SUPCPDRO 01:43 → 6NMEDSUR 02:23
PROVIDERS: ADMIT Internal Medicine; ATTEND Internal Medicine
DX: R10.9 Unspecified abdominal pain (principal); R07.89 Other chest pain; R11.2 Nausea with vomiting, unspecified; R51.9 Headache, unspecified; D69.6 Thrombocytopenia, unspecified; N28.89 Other specified disorders of kidney and ureter; F17.200 Nicotine dependence, unspecified, uncomplicated; I07.1 Rheumatic tricuspid insufficiency; I27.20 Pulmonary hypertension, unspecified; J44.9 Chronic obstructive pulmonary disease, unspecified; Z82.49 Family history of ischemic heart disease and other diseases of the circulatory system; Z90.5 Acquired absence of kidney
CPT/HCPCS: 96361 ×3; 96375 ×2; 96374; 93306; 99285; 36415; 93005; 83880; 80053 ×2; 82550; 83605; 83735 ×2; 84100 ×2; 84484; 85025 ×2; 85610; 85730; 81003; 70553; G0378 ×2; S4990; J2060; J2270 ×2; J1200; J0780; J2405; A9585

== ENCOUNTER 2020-09-16 06:43 | Observation (INO) | payer BC, OTHER ==
[2020-09-14 12:00] VITALS: BMI 29.8
[~2020-09-16 06:43] MED LIST: DEXAMETHASONE SOD PHOSPHATE 4 MG/ML 1 ML VIAL IV ONE; LIDOCAINE 1% (10MG/ML) FOR IV START INTRADERMA PRN; ONDANSETRON 4 MG/2 ML VIAL IVP ONE
[2020-09-16] MEDS: LACTATED RINGERS 1,000 ML IV SCH ×2 (07:09→07:21)
[2020-09-16] MEDS: HEPARIN SODIUM,PORCINE/PF 5,000 UNIT/0.5 ML SYRINGE SQ PRN ×2 (07:24→08:39)
--- NOTE | 2020-09-16 07:39 | P.HPIHPCON ---
History of Present Illness Chief Complaint: right renal mass This is a 49 yo male with 6 cm renal mass, discussed the finding of CT with him, Discussed on Imaging no evidence of pulmonary, liver or reteroperiotneal mets. Of not CT chest showed 1.4 and 1.6 cm hilar lymph nodes. From Cardiac standpoint he is cleared for surgery. I discussed the finding of the tumor with him I discussed with him the clinical course of renal cell carcinoma I discussed with him his different options. I discussed with him the option of renal mass biopsy. Discussed the risk of biopsy and potential of false negative and missing the tumor, discussed with him given size of tumor the potential of malignancy is > 90 %. Discussed the option of active surveillance, discussed what that would involve and the risk of metastatic disease. I discussed surgical option including radical nephrectomy and partial nephrectomy. Discussed the option of open vs Robotic Discussed with radical nephrectomy its a faster operation with lower risk, but is associated with more nephron loss. I discussed I next discussed partial nephrectomy include bleeding and can be life threatening bleeding, infection, injury to he nearby organs. Discussed risk of conversion to radical nephrectomy. I next discussed radical nephrectomy, discussed risk with that is bleeding, infection, injury to nearby organs. Discussed with both operation there is a risk of heart attack, strokes, blood clots and even . At this time the plan is Robotic partial nephrectomy possibile radical but discussed given size of tumor it's high likelhood of converting to radical nephrectomy. Discussed with him he will need a follow-up PET scan for his hilar nodes. Consent for Procedure: I have explained the operation/procedure to the patient, including the risks, benefits, side effects, alternative therapies (including not receiving the proposed treatment or service), the likelihood of the patient achieving his/her goals, and potential recuperation problems for the procedure/sedation/analgesia, as well as any blood products, if indicated. I also explained to the patient the risks, benefits and side effects of the alternatives, as well as the risks related to not receiving the proposed procedure, care, treatment, or services. Past Medical History Past Medical History: Cancer, GERD/Reflux Additional Past Medical History / Comment(s): NEW DX RT KIDNEY CANCER-09/07/20. PAST HX DIVERTICULITIS History of Any Multi-Drug Resistant Organisms: None Reported Past Surgical History: Appendectomy, Cholecystectomy, Hernia Repair Additional Past Surgical History / Comment(s): BILAT CATARACTS REMOVED WITH LENS IMPLANTS. COLONOSCOPY Past Anesthesia/Blood Transfusion Reactions: No Reported Reaction Smoking Status: Current every day smoker - Past Family History Father Family Medical History: No Reported History Medications and Allergies Home Medications Medication Instructions Recorded Confirmed Type Omeprazole [PriLOSEC] 20 mg PO AC-BRKFST 05/20/14 09/16/20 History Allergies Allergy/AdvReac Type Severity Reaction Status Date / Time No Known Allergies Allergy Verified 09/16/20 07:22 Surgical - Exam Vital Signs Temp Pulse Resp BP Pulse Ox 97.6 F 75 16 142/92 95 09/16/20 07:12 09/16/20 07:12 09/16/20 07:12 09/16/20 07:12 09/16/20 07:12 - General well developed, well nourished, no distress, no pain - Eyes PERRL, normal ocular movement - ENT normal nares, normal mucosa - Respiratory normal expansion, normal respiratory effort - Abdomen Abdomen: soft, non tender Assessment and Plan Assessment: OR for right-sided partial nephrectomy possible radical
[2020-09-16] MEDS ORDERED: MIDAZOLAM 2 MG/2 ML VIAL IVP ONE (08:19)
[2020-09-16] MEDS ORDERED: LIDOCAINE 1% INJ 10MG/ML (20 ML MDV) ONE (08:52)
[2020-09-16] MEDS ORDERED: MANNITOL 25% 12.5 GM/50 ML VIAL ONE (08:52)
[2020-09-16] MEDS ORDERED: fentaNYL (PF) 50 MCG/ML 2 ML AMP ONE (08:52)
[2020-09-16] MEDS ORDERED: ROPIVACAINE 5 MG/ML 30 ML VIAL ONE (08:52)
[2020-09-16] MEDS ORDERED: ALBUTEROL HFA INHALER INHALATION ONE (08:52)
[2020-09-16] MEDS ORDERED: MIDAZOLAM 2 MG/2 ML VIAL ONE (08:52)
[2020-09-16] MEDS ORDERED: GLYCOPYRROLATE 0.2 MG/ML 2 ML VIAL ONE (08:52)
[2020-09-16] MEDS ORDERED: ROCURONIUM 10 MG/ML (5 ML VIAL) IV ONE (08:52)
[2020-09-16] MEDS ORDERED: SUCCINYLCHOLINE CHLORIDE VIAL 200 MG/10 ML VIAL IV ONE (08:52)
[2020-09-16] MEDS ORDERED: LIDOCAINE 1%-EPI 1:100,000 20 ML VIAL ONE (08:52)
[2020-09-16] MEDS ORDERED: HYDROmorphone (PF) 1 MG/ML ONE (08:52)
[2020-09-16] MEDS ORDERED: NEOSTIGMINE 1 MG/ML 10 ML VIAL ONE (08:52)
[2020-09-16] MEDS ORDERED: PROPOFOL 10 MG/ML 20 ML VIAL IV ONE (08:52)
[2020-09-16] MEDS ORDERED: BUPIVACAINE (PF) 0.5% 30 ML VIAL SQ ONE (08:57)
[2020-09-16] MEDS ORDERED: LACTATED RINGERS 1,000 ML IV ONE ×2 (10:15→12:14)
--- NOTE | 2020-09-16 12:30 | P.OP ---
Date of Procedure: 09/16/20 Preoperative Diagnosis: Right renal tumor Postoperative Diagnosis: Same Procedure(s) Performed: Robotic-assisted laparoscopic partial nephrectomy on the right, extensive lysis of adhesion Implants: none Anesthesia: LENNOXA Surgeon: Danny Rubio Vp Informatics #1: Irving Dhillon Estimated Blood Loss (ml): 50 Pathology: other (right renal tumor) Condition: stable Disposition: PACU Indications for Procedure: This is a 49 yo male with 6 cm renal mass, discussed the finding of CT with him, Discussed on Imaging no evidence of pulmonary, liver or reteroperiotneal mets. Of not CT chest showed 1.4 and 1.6 cm hilar lymph nodes. From Cardiac standpoint he is cleared for surgery. I discussed the finding of the tumor with him I discussed with him the clinical course of renal cell carcinoma I discussed with him his different options. I discussed with him the option of renal mass biopsy. Discussed the risk of biopsy and potential of false negative and missing the tumor, discussed with him given size of tumor the potential of malignancy is > 90 %. Discussed the option of active surveillance, discussed what that would involve and the risk of metastatic disease. I discussed surgical option including radical nephrectomy and partial nephrectomy. Discussed the option of open vs Robotic Discussed with radical nephrectomy its a faster operation with lower risk, but is associated with more nephron loss. I discussed I next discussed partial nephrectomy include bleeding and can be life threatening bleeding, infection, injury to he nearby organs. Discussed risk of conversion to radical nephrectomy. I next discussed radical nephrectomy, discussed risk with that is bleeding, infection, injury to nearby organs. Discussed with both operation there is a risk of heart attack, strokes, blood clots and even . At this time the plan is Robotic partial nephrectomy possibile radical but discussed given size of tumor it's high likelhood of converting to radical nephrectomy. Discussed with him he will need a follow-up PET scan for his hilar nodes. Operative Findings: large Right renal tumor, in close proximity to the hilum, extensive adhesions along the right side, secondary to previous appendectomy Description of Procedure: The patient was taken to the operating room . General anesthesia was induced. He was prepped and draped in sterile fashion, and was placed in modified flank position . All pressure points were padded. The abdominal insufflation was achieved with the Veress needle. A 8 mm camera port was placed. Robotic trocars and security assistant ports were placed under direct vision. a 5 mm liver retractor was placed. . The robot was docked into place. Patient had extensive adhesions along the lower edge of the kidney, secondary to his previous appendectomy. Extensive lysis of adhesion was performed, more than 45 minutes were spent performing lysis of adhesion, after the completion of lysis of adhesion there was no evidence of bowel injury. The colon was mobilized medially by incising along the white line of Toldt. Next the duodenum was kocherized. At this time the vena cava was exposed. Next the ureter was retracted anteriorly off the psoas muscle. Dissection proceeded cranially towards the renal hilum. Two renal arteries were visualized. The upper pole attachments were dissected. Care was taken to safely mobilize the kidney free of all visceral structures.both renal arteries were dissected in preparation for clamping. At this time, the fat around the kidney was mobilized, given the posterior location of the kidney the kidney was completely mobilized. At this time the tumor was exposed, a sponge was placed underneath the kidney to allow for better visualization of the tumor. At this time to bulldogs clamps were placed on each artery, the tumor was excised sharply, point cautery was used to the areas of bleeding. After the tumor was removed additional tissue margin was removed and labeled as kidney base. The defect was closed in 2 layers using 3-0V lock for the inner layer, 2- 0V lock for the outer layer, sliding clip technique was used . Hemostatic agent were applied to the tumor defect. Total clamp time was 17 minutes, the area of tumor was reevaluated and there was no evidence of bleeding. A KYLAH drain was placed through the right lower quadrant port site. Tumor was placed in a bag. The robot was de-docked, the tumor was removed by extending the security assistant port incision. Fascia was closed using 0 vicryl in figure of eight fashion. Skin was closed with subcuticular sutures and dermabond. The patient was awoken from general anesthesia in stable condition. Please refer to the final pathology report for final diagnosis
[2020-09-16] MEDS ORDERED: HYDROcodone/APAP 5-325MG 1 EACH TAB PO PRN (12:32)
[2020-09-16] MEDS: HYDROmorphone 0.5 MG/0.5 ML SYRINGE IVP ONE ×3 (12:37→12:51)
[2020-09-16] MEDS ORDERED: HYDROmorphone 0.5 MG/0.5 ML SYRINGE IVP ONE (13:28)
[2020-09-16] MEDS: MORPHINE SULFATE 4 MG/ML SYRINGE IVP PRN ×3 (16:07→22:10)
[2020-09-16] MEDS: ONDANSETRON 4 MG/2 ML VIAL IVP PRN (16:07)
[2020-09-16] MEDS: KETOROLAC 15 MG/ML 1 ML VIAL IVP SCH (16:07)
[2020-09-16] MEDS: HEPARIN SODIUM,PORCINE/PF 5,000 UNIT/0.5 ML SYRINGE SQ SCH (16:14)
[2020-09-16] MEDS: D5-0.45% NACL WITH KCL 20MEQ/L 1,000 ML IV SCH ×2 (17:10→22:14)
[2020-09-17] MEDS: HEPARIN SODIUM,PORCINE/PF 5,000 UNIT/0.5 ML SYRINGE SQ SCH ×4 (00:09→23:35)
[2020-09-17] MEDS: KETOROLAC 15 MG/ML 1 ML VIAL IVP SCH ×5 (00:09→23:35)
[2020-09-17] MEDS: MORPHINE SULFATE 4 MG/ML SYRINGE IVP PRN ×5 (05:03→20:23)
[2020-09-17] MEDS: D5-0.45% NACL WITH KCL 20MEQ/L 1,000 ML IV SCH ×3 (06:02→21:49)
[2020-09-17] MEDS: PANTOPRAZOLE 40 MG TABLET PO SCH (07:34)
[2020-09-17] MEDS: ONDANSETRON 4 MG/2 ML VIAL IVP PRN ×3 (07:43→20:24)
--- NOTE | 2020-09-17 07:43 | P.PN ---
Subjective Progress Note Date: 09/17/20 The patient is in his first postoperative day from a right partial nephrectomy. He is doing well. His vital signs are stable. His urine output is good. His urine is clear. The drainage is not significant. His abdomen is relatively soft. Wound looks okay. He is not complaining of much pain. I will remove his Frias. I'll see him regular diet and ambulating. He will into need to be observed. Objective - Vital Signs Vital signs: Vital Signs Temp 97.7 F 09/17/20 02:55 Pulse 60 09/17/20 02:55 Resp 17 09/17/20 02:55 BP 128/75 09/17/20 02:55 Pulse Ox 96 09/17/20 02:55 Intake & Output 09/16/20 09/17/20 09/17/20 18:59 06:59 18:59 Intake Total 2350 Output Total 1320 1060 Balance 1030 -1060 Weight 119.1 kg Intake: IV 2350 Output: Drainage 100 60 Lower Abdomen 100 60 Urine 1050 1000 Estimated Blood Loss 170 Other: Voiding Method Indwelling Catheter Indwelling Catheter
[2020-09-17 10:10] LABS: Basophils # (A) 0.02 X 10*3/uL (0.00-0.10); Basophils % (A) 0.2 %; Eosinophils # (A) 0.01 X 10*3/uL (0.04-0.35); Eosinophils % (A) 0.1 %; HCT 41.6 % (39.6-50.0); HGB 13.9 g/dL (13.0-17.0); Lymphocytes # (A) 1.38 X 10*3/uL (0.90-5.00); Lymphocytes % (A) 11.4 %; MCH 30.3 pg (27.0-32.0); MCHC 33.4 g/dL (32.0-37.0); MCV 90.6 fL (80.0-97.0); Mean Platelet Volume 11.3 fL (9.5-12.2); Monocytes # (A) 1.11 X 10*3/uL (0.20-1.00); Monocytes % (A) 9.2 %; Neutrophils # (A) 9.58 X 10*3/uL (1.80-7.70); Neutrophils % (A) 78.9 %; Platelet Count 161 X 10*3/uL (140-440); RBC 4.59 X 10*6/uL (4.40-5.60); WBC 12.13 X 10*3/uL (4.50-10.00)
--- NOTE | 2020-09-17 10:48 | P.ANPRN ---
Procedure Note - Anesthesia - Nerve Block Performed Bilateral Erector Spinae Single Time Out Performed: Yes Date of Procedure: 09/16/20 Procedure Start Time: :18 Procedure Stop Time: : Location of Patient: PreOp Indication: Acute Post-Operative Pain, Requested by Surgeon Sedation Type: Sedate with meaningful contact maintained Preparation: Sterile Prep Position: Prone Needle Types: Pajunk Needle Gauge: 21 Ultrasound used to visualize needle placement: Yes Ultrasound used to observe medication spread: Yes Blood Aspirated: No Pain Paresthesia on Injection Noted: No Resistance on Injection: Normal Image Stored and Saved: Yes Events: Uneventful and Well Tolerated (ropi .5% 15cc plus xylo 1.5% 15cc bilaterally at L1)
[2020-09-17 11:45] LABS: African American GFR (CKD) 126.6 (60.0-200.0); Anion Gap 8.5 mmol/L (4.00-12.00); BUN/Creat Ratio 14.29 Ratio (12.00-20.00); Calcium 8.4 mg/dL (8.7-10.3); Carbon Dioxide 25.5 mmol/L (21.6-31.8); Non-African American GFR(CKD) 109.3 (60.0-200.0); Potassium 4.1 mmol/L (3.5-5.5)
[2020-09-17] MEDS: LACTATED RINGERS 1,000 ML IV SCH (15:31)
[2020-09-17] MEDS: HYDROcodone/APAP 7.5-325MG 1 EACH TAB PO PRN ×2 (16:35→23:35)
[2020-09-18] MEDS: KETOROLAC 15 MG/ML 1 ML VIAL IVP SCH (05:22)
[2020-09-18] MEDS: HYDROcodone/APAP 7.5-325MG 1 EACH TAB PO PRN (05:22)
[2020-09-18] MEDS: D5-0.45% NACL WITH KCL 20MEQ/L 1,000 ML IV SCH (05:22)
--- NOTE | 2020-09-18 07:53 | P.DS ---
Providers Date of admission: 09/16/20 23:34 Attending physician: Danny Rubio MD Primary care physician: Physician Nonstaff Hospital Course: The patient is 49. He underwent a right partial nephrectomy robotically by Dr. Rubio on 09/16/2020. He has done well postoperatively. His catheter is removed and voided well. He is tolerating regular diet. He is passing gas. His abdomen is soft. The drainage from the drain is not significant. Pathology report is pending. He would like to go home. His pain is under control. He be sent home on Shirley 7.5/325. His diet is regular his activities Limited. He'll follow-up with Dr. Corona on Sunday. He has been given postoperative instructions. He'll contact us at any time if there are any problems. Condition is good. Patient Condition at Discharge: Good Plan - Discharge Summary Discharge Rx Participant: Yes New Discharge Prescriptions: New HYDROcodone/APAP 7.5-325MG [Shirley 7.5-325] 1 tab PO Q4H PRN 3 Days #14 tab PRN Reason: Pain Control No Action Omeprazole [PriLOSEC] 20 mg PO AC-BRKFST Discharge Medication List Omeprazole [PriLOSEC] 20 mg PO AC-BRKFST 05/20/14 [History] HYDROcodone/APAP 7.5-325MG [Shirley 7.5-325] 1 tab PO Q4H PRN 3 Days #14 tab 09/18/20 [Rx] Follow up Appointment(s)/Referral(s): Danny Rubio MD [STAFF PHYSICIAN] - 09/22/20 Discharge Disposition: HOME SELF-CARE
[2020-09-18] MEDS: HEPARIN SODIUM,PORCINE/PF 5,000 UNIT/0.5 ML SYRINGE SQ SCH (08:10)
[2020-09-18] MEDS: PANTOPRAZOLE 40 MG TABLET PO SCH (08:10)
[2020-09-18 08:13] VITALS: BP 144/82; PULSE 75; RESP 16; TEMP 97.6
== END 2020-09-18 09:46 | disposition home or self-care (01) ==
LOC: OR 06:43 → 4SSUR 12:54 → OR 23:34 → 4SSUR 23:34
PROVIDERS: ADMIT Urology; ATTEND Urology
DX: C64.1 Malignant neoplasm of right kidney, except renal pelvis (principal); K66.0 Peritoneal adhesions (postprocedural) (postinfection); K57.90 Diverticulosis of intestine, part unspecified, without perforation or abscess without bleeding; F17.200 Nicotine dependence, unspecified, uncomplicated; K21.9 Gastro-esophageal reflux disease without esophagitis; Z79.899 Other long term (current) drug therapy; Z90.49 Acquired absence of other specified parts of digestive tract; Z98.41 Cataract extraction status, right eye; Z98.42 Cataract extraction status, left eye; Z96.1 Presence of intraocular lens; Z80.9 Family history of malignant neoplasm, unspecified
CPT/HCPCS: 50543; 50549; S2900; 36415; 64999; 80048; 85025; 86850; 86900; 86901; 88305; 88307; 94760

== ENCOUNTER → 2020-12-29 | Outpatient (CLI) | payer BC, OTHER ==
[2020-12-29 18:34] LABS: African American GFR (CKD) >90 (>60 ml/min/1.73 sqM); Blood Urea Nitrogen 16 mg/dL (9-20); Non-African American GFR(CKD) >90 (>60 ml/min/1.73 sqM)
--- NOTE | 2021-01-03 12:05 | CT ---
EXAMINATION TYPE: CT chest abdomen wo/w con DATE OF EXAM: 12/29/2020 COMPARISON: Outside institution CTA chest abdomen pelvis 09/06/2020 HISTORY: enlarged lymph nodes, renal ca. Right renal cancer. CT DLP: 2549 mGycm. Automated Exposure Control for Dose Reduction was Utilized. CONTRAST: CT scan of the thorax, abdomen and pelvis is performed without and with IV Contrast, patient injected with 100 mL of Isovue 300. FINDINGS: LUNGS: Mild centrilobular and paraseptal emphysema, worse at the lung apices. There is an unchanged 4 mm pulmonary nodule of the left upper lobe at the apex (4:7). Unchanged 8 mm pulmonary nodule of the left upper lobe (4:13). Similar-appearing 6 mm pulmonary nodule of the right upper lobe (4:33). Ther e is no pleural effusion or pneumothorax seen. The tracheobronchial tree is patent. MEDIASTINUM: There are no greater than 1 cm hilar or mediastinal lymph nodes. Less conspicuous appear ance of bilateral hilar lymph nodes versus 09/06/2020 comparison. Cardiac size normal. No pericardial effusion is seen. OTHER: No axillary lymphadenopathy. LIVER/GB: Fatty liver. Status post cholecystectomy. PANCREAS: Normal. SPLEEN: Splenomegaly measures 17.9 cm craniocaudal, previously 18.4 cm. ADRENALS: Normal. KIDNEYS: No hydronephrosis bilaterally. No hydroureter of the visualized ureters bilaterally. There is now right perinephric inflammatory stranding and inflammatory stranding within the right par acolic gutter superiorly (7:77) and inferiorly spanning 4.1 cm (7:92). The right renal exophytic uppe r pole solid mass seen on 09/06/2020 comparison appears post treatment and significantly decreased in size versus absent. There is some haziness of the upper pole, hypodensity, and adjacent mild hyperden se nodularity versus postsurgical change medially. There is a 1.3 cm interpolar peripelvic cyst and a 1.0 cm anterior lower pole cyst of the right kidney. There is anterior exophytic 1.8 cm cyst of the upper pole of the left kidney. There is ill-defined in determinate hypodensity of the posteromedial upper pole of the left kidney measuring at least 1.9 cm. BOWEL: No evidence of bowel obstruction or thickening. Colonic diverticulosis. No acute diverticuliti s. PERITONEUM: No pneumoperitoneum or ascites. LYMPH NODES: No greater than 1cm abdominal lymph nodes nodes. There is a unchanged unenlarged 6 mm re troperitoneal lymph node at the level of the left kidney. VASCULATURE: Abdominal aorta normal in caliber. MUSCULOSKELETAL: Right flank intramuscular lipoma measures 6.6 cm, unchanged. Degenerative changes of the spine. There are well-circumscribed lytic lesions of the bilateral iliac bones with internal Marquise nsfield units demonstrating fat density, therefore more likely to be benign, and are unchanged versus 09/06/2020. No aggressive osseous destructive lesions. IMPRESSION: 1. Likely post treatment/post surgical changes at the right renal upper pole. The previously demonstr ated exophytic soft tissue mass of the right renal upper pole on 09/06/2020 CTA comparison is not defi nitively seen. There is haziness and mild hypodensity at the right renal upper pole, as well as mild hyperdense nodularity/postsurgical change medially. There is new right perinephric and right paracoli c gutter inflammatory stranding as above. 2. Bilateral renal cysts. 3. No chest or abdominal lymphadenopathy. 4. Subcentimeter bilateral pulmonary nodules unchanged. Attention on follow-up imaging for stability. 5. Fatty liver. 6. Splenomegaly.
== END | disposition home or self-care (01) ==
LOC: RADCTMAIN 17:56
PROVIDERS: ATTEND Urology
DX: C64.9 Malignant neoplasm of unspecified kidney, except renal pelvis (principal); R59.9 Enlarged lymph nodes, unspecified; K76.0 Fatty (change of) liver, not elsewhere classified
CPT/HCPCS: 82565; 84520; 71270; 74170; 36415; Q9967

== ENCOUNTER 2022-02-15 09:13 | Day surgery (SDC) | payer BC, OTHER ==
[2022-02-10 15:32] VITALS: BMI 35.2
[~2022-02-15 09:13] MED LIST changes: -DEXAMETHASONE SOD PHOSPHATE 4 MG/ML 1 ML VIAL IV ONE; +LACTATED RINGERS 1,000 ML IV SCH; -ONDANSETRON 4 MG/2 ML VIAL IVP ONE
[2022-02-15 09:33] VITALS: TEMP 97.1
[2022-02-15] MEDS ORDERED: LIDOCAINE 2% INJ 20 MG/ML (2 ML VIAL) ONE (10:28)
[2022-02-15] MEDS ORDERED: PROPOFOL 10 MG/ML 20 ML VIAL IV ONE (10:28)
--- NOTE | 2022-02-15 10:41 | P.PCN ---
Date of Procedure: 02/15/22 Procedure(s) Performed: BRIEF HISTORY: Patient is a 51-year-old, pleasant, white male scheduled for an upper endoscopy as a part of evaluation of long-standing history of GERD with worsening symptoms lately. He was on Prilosec 20 mg daily but he was advised to stop the Prilosec by his chemical dependency therapist after recent nephrectomy.. Recently was started on Pepcid 40 mg twice daily and still remains symptomatic. He scheduled for an upper endoscopy to evaluate further.. PROCEDURE PERFORMED: Esophagogastroduodenoscopy with biopsy. PREOPERATIVE DIAGNOSIS: And sent history of GERD with worsening symptoms. IV sedation per anesthesia. PROCEDURE: After informed consent was obtained, the patient was brought into the endoscopy unit. IV sedation was administered by Anesthesia under continuous monitoring. Initially the Olympus GIF-140 video endoscope was inserted into the mouth. Esophagus intubated without any difficulty. It was gradually advanced into the stomach and duodenum and carefully examined. The bulb and the second part of the duodenum appeared normal. The scope at this time was withdrawn to the stomach, adequately insufflated with air, and upon careful examination, mucosa of the antrum, had mild gastritis and biopsies were done from this area. Mucosa of the body, cardia and the fundus appeared normal. The scope was then withdrawn into the esophagus. Small hiatal hernia noted. The GE junction was located at 40 cm from the incisors. There were linear erosions in the distal esophagus consistent with LA grade B reflux esophagitis. Rest of esophagus appeared normal or ulcerations seen and the patient tolerated the procedure well. IMPRESSION: 1. Small hiatal hernia. 2.. Linear Erosions in the distal esophagus consistent with LA grade B reflux esophagitis. 3. Mild antral gastritis RECOMMENDATIONS: The findings of this examination were discussed with the patient well as his family. He was advised to continue with Pepcid 40 mg twice daily and follow antireflux measures. We will add Carafate 1 g 4 times daily and he'll be seen in office in 4-6 weeks..
[2022-02-15 10:44] VITALS: RESP 16
[2022-02-15 10:59] VITALS: BP 118/76; PULSE 69
== END 2022-02-15 11:20 | disposition home or self-care (01) ==
LOC: ORWHC2ENDO 09:13
PROVIDERS: ATTEND Internal Medicine Gastroenterology
DX: K21.00 Gastro-esophageal reflux disease with esophagitis, without bleeding (principal); K29.50 Unspecified chronic gastritis without bleeding; J44.9 Chronic obstructive pulmonary disease, unspecified; Z87.891 Personal history of nicotine dependence
CPT/HCPCS: 88305; 43239; J2704; J2001

== ENCOUNTER 2023-01-30 17:40 | Inpatient (IN) | payer BC, OTHER ==
[2023-01-30] MEDS ORDERED: KETOROLAC 15 MG/ML 1 ML VIAL IVP STA (19:34)
[2023-01-30] MEDS ORDERED: ONDANSETRON 4 MG/2 ML VIAL IVP PRN (19:34)
[2023-01-30] MEDS ORDERED: NALOXONE 0.4 MG/ML 1 ML VIAL IV PRN (19:34)
[2023-01-30] MEDS ORDERED: HYDROmorphone 1 MG/ML 1 ML SYRINGE IVP STA (19:35)
--- NOTE | 2023-01-30 19:39 | ED ---
Back Pain HPI - General Chief Complaint: Back Pain/Injury Stated Complaint: Back Pain Time Seen by Provider: 01/30/23 17:41 Source: patient, RN notes reviewed, old records reviewed Limitations: no limitations - History of Present Illness Initial Comments: This is a 52-year-old male to the emergency department for evaluation pain severe back pain chronic back pain acute on chronic back pain with increased ability inability to walk and severe pain. Patient accepted as a transfer from outside facility, hasn't does for increasing intractable back pain, no no neurological deficit or neurological symptoms MD Complaint: back pain -: days(s) Similar Symptoms Previously: Yes Place: home Radiation: none Severity: moderate Severity scale (1-10): 4 Quality: burning, sharp, dull Consistency: constant Improves With: none Worsens With: none Context: other Associated Symptoms: denies other symptoms - Related Data Home Medications Medication Instructions Recorded Confirmed Gabapentin 300 mg PO TID 01/30/23 01/30/23 Omeprazole [PriLOSEC] 20 mg PO HS 01/30/23 01/30/23 Previous Rx's Medication Instructions Recorded HYDROcodone/APAP 5-325MG [Zebulon 1 tab PO Q6H PRN #12 tab 02/02/23 5-325] Sennosides-Docusate Sodium 2 each PO DAILY #30 tab 02/02/23 [Senokot-S] polyethylene glycoL 3350 [Miralax] 17 gm PO DAILY #30 packet 02/02/23 Allergies Allergy/AdvReac Type Severity Reaction Status Date / Time methylprednisolone AdvReac Abnormal Verified 01/30/23 19:58 [From Medrol] BP & Confusion Review of Systems ROS Statement: Those systems with pertinent positive or pertinent negative responses have been documented in the HPI. ROS Other: All systems not noted in ROS Statement are negative. Past Medical History Past Medical History: Cancer, GERD/Reflux, Sleep Apnea/CPAP/BIPAP Additional Past Medical History / Comment(s): HX RIGHT KIDNEY CANCER-09/07/20, WITH NEPRECTOMY. HX DIVERTICULITIS. CPAP USE. History of Any Multi-Drug Resistant Organisms: None Reported Past Surgical History: Appendectomy, Cholecystectomy, Hernia Repair, Orthopedic Surgery Additional Past Surgical History / Comment(s): BILATERAL CATARACTS REMOVED WITH LENS IMPLANTS, COLONOSCOPY, RIGHT NEPHRECTOMY. Past Anesthesia/Blood Transfusion Reactions: No Reported Reaction Past Psychological History: No Psychological Hx Reported Smoking Status: Current every day smoker Past Alcohol Use History: Occasional Past Drug Use History: None Reported - Past Family History Father Family Medical History: Cancer General Exam - General Exam Comments Initial Comments: No focal neurological symptoms Limitations: no limitations General appearance: alert, in no apparent distress, anxious Head exam: Present: atraumatic, normocephalic, normal inspection Eye exam: Present: normal appearance, PERRL, EOMI. Absent: scleral icterus, conjunctival injection, periorbital swelling ENT exam: Present: normal exam, mucous membranes moist Neck exam: Present: normal inspection. Absent: tenderness, meningismus, lymphadenopathy Respiratory exam: Present: normal lung sounds bilaterally. Absent: respiratory distress, wheezes, rales, rhonchi, stridor Cardiovascular Exam: Present: regular rate, normal rhythm, normal heart sounds. Absent: systolic murmur, diastolic murmur, rubs, gallop, clicks GI/Abdominal exam: Present: soft, normal bowel sounds. Absent: distended, tenderness, guarding, rebound, rigid Extremities exam: Present: normal inspection, full ROM, normal capillary refill. Absent: tenderness, pedal edema, joint swelling, calf tenderness Back exam: Present: normal inspection Neurological exam: Present: alert, oriented X3, CN II-XII intact Psychiatric exam: Present: normal affect, normal mood Skin exam: Present: warm, dry, intact, normal color. Absent: rash Course Vital Signs 01/30/23 01/30/23 01/30/23 17:40 18:27 20:15 Temperature 97.0 F L Pulse Rate 84 84 79 Respiratory 20 18 19 Rate Blood Pressure 131/93 120/86 O2 Sat by Pulse 95 95 Oximetry - Reevaluation(s) Reevaluation #1: 01/30/23 19:37 Record is reviewed Reevaluation #2: 01/30/23 19:37 Patient symptoms improved Reevaluation #3: 01/30/23 19:38 Patient informed results and questions answered Reevaluation #4: 01/30/23 19:37 Was pt. sent in by a medical professional or institution (, PA, ASSISTANT DISTRIBUTION MANAGER, urgent care, hospital, or alf...) When possible be specific @ -no Did you speak to anyone other than the patient for history (EMS, parent, family, police, friend...)? What history was obtained from this source @ -no Did you review nursing and triage notes (agree or disagree)? Why? @ -agree Are old charts reviewed (outside hosp., previous admission, EMS record, old EKG, old radiological studies, urgent care reports/EKG's, alf records)? Report findings @ -yes Differential Diagnosis (chest pain, altered mental status, abdominal pain women, abdominal pain men, vaginal bleeding, weakness, fever, dyspnea, syncope, headache, dizziness, GI bleed, back pain, seizure, CVA, palpatations, mental health, musculoskeletal)? @ -prior EKG interpreted by me (3pts min.). @ -no X-rays interpreted by me (1pt min.). @ -no CT interpreted by me (1pt min.). @ -no U/S interpreted by me (1pt. min.). @ -no What testing was considered but not performed or refused? (CT, X-rays, U/S, labs)? Why? @ -none What meds were considered but not given or refused? Why? @ -none Did you discuss the management of the patient with other professionals (professionals i.e. , PA, ASSISTANT DISTRIBUTION MANAGER, lab, RT, psych nurse, social security specialist, director medicare sales, teacher, nuclear security officer, onsite case manager)? Give summary @ -no Was smoking cessation discussed for >3mins.? @ -no Was critical care preformed (if so, how long)? @ -no Were there social determinants of health that impacted care today? How? (Homelessness, low income, unemployed, alcoholism, drug addiction, transportation, low edu. Level, literacy, decrease access to med. care, halfway, rehab)? @ -none Was there de-escalation of care discussed even if they declined (Discuss DNR or withdrawal of care, Hospice)? DNR status @ -no What co-morbidities impacted this encounter? (DM, HTN, Smoking, COPD, CAD, Cancer, CVA, ARF, Chemo, Hep., AIDS, mental health diagnosis, sleep apnea, morbid obesity)? @ -none Was patient admitted / discharged? Hospital course, mention meds given and route, prescriptions, significant lab abnormalities, going to OR and other pertinent info. @ - 52 male to the emergency departmen patient is accepted from outpatient, out of Hospital emergency department for transfer regarding significant back pain and comes to the ER today for evaluation of back pain severe back pain will be admitted for evaluation and pain control Admitted Undiagnosed new problem with uncertain prognosis? @ -no Drug Therapy requiring intensive monitoring for toxicity (Heparin, Nitro, Insulin, Cardizem)? @ -no Were any procedures done? @ -no Diagnosis/symptom? @ -Severe acute on chronic back pain Acute, or Chronic, or Acute on Chronic? @ -Acute Uncomplicated (without systemic symptoms) or Complicated (systemic symptoms)? @ -Complicated Side effects of treatment? @ -no Exacerbation, Progression, or Severe Exacerbation? @ -exacerbation Poses a threat to life or bodily function? How? (Chest pain, [place], [place], pneumonia, PE, COPD, DKA, ARF, appy, cholecystitis, CVA, Diverticulitis, Homicidal, Suicidal, threat to staff... and all critical care pts) @ -yes or back pain Reevaluation #5: Differential Back Pain: Strain, zoster, cauda equina syndrome, epidural abscess, vertebral osteomyelitis, discitis, fracture, subluxation, disc herniation, DJD, spinal stenosis, dissection, AAA, pancreatitis, peptic ulcer disease, pyelonephritis, kidney stone, this is not meant to be an all-inclusive list. - Consultations Consultation #1: storm michelle who will admit this patient Medical Decision Making - Medical Decision Making 52 male to the emergency departmen patient is accepted from outpatient, out of Hospital emergency department for transfer regarding significant back pain and comes to the ER today for evaluation of back pain severe back pain will be admitted for evaluation and pain control - Lab Data Result diagrams: 01/31/23 06:15 02/01/23 08:55 Lab Results 01/31/23 01/31/23 01/31/23 Range/Units 06:15 06:15 06:15 WBC 7.56 (4.50-10.00) X 10*3/uL RBC 5.06 (4.40-5.60) X 10*6/uL Hgb 15.2 (13.0-17.0) g/dL Hct 44.5 (39.6-50.0) % MCV 87.9 (80.0-97.0) FL MCH 30.0 (27.0-32.0) pg MCHC 34.2 (32.0-37.0) g/dL RDW 13.0 (11.5-14.5) % Plt Count 153 (140-440) X 10*3/uL MPV 11.4 (9.5-12.2) FL Immature Gran % (Auto) 0.40 % Absolute Nucleated RBC 0 % Neutrophils % 67.0 % Lymphocytes % 21.8 % Monocytes % 9.4 % Eosinophils % 1.1 % Basophils % 0.3 % Immature Gran # 0.03 (0.00-0.04) X 10*3/uL Neutrophils # 5.07 (1.80-7.70) X 10*3/uL Lymphocytes # 1.65 (0.90-5.00) X 10*3/uL Monocytes # 0.71 (0.20-1.00) X 10*3/uL Eosinophils # 0.08 (0.04-0.35) X 10*3/uL Basophils # 0.02 (0.00-0.10) X 10*3/uL NRBC/100 WBC Diff 0 (0.00-0.01) X 10*3/uL PT 11.7 (9.9-11.9) sec INR 1.09 (0.93-1.11) sec APTT (22.0-30.0) sec Sodium 143 (135-145) mmol/L Potassium 3.8 (3.5-5.5) mmol/L Chloride 107 (96-109) mmol/L Carbon Dioxide 26.2 (21.6-31.8) mmol/L Anion Gap 9.80 (4.00-12.00) mmol/L BUN 9.8 (9.0-27.0) mg/dL Creatinine 0.7 (0.6-1.5) mg/dL Est GFR (CKD-EPI) 110 (>=60) Est GFR (CKD-EPI)AfAm (>60 ml/min/1.73 sqM) Est GFR (CKD-EPI)NonAf (>60 ml/min/1.73 sqM) BUN/Creatinine Ratio 14.00 (12.00-20.00) Ratio Glucose 100 (70-110) mg/dL Calcium 8.9 (8.7-10.3) mg/dL Phosphorus 3.5 (2.4-5.1) mg/dL Magnesium 1.9 (1.5-2.4) mg/dL Total Bilirubin 1.6 H (0.3-1.2) mg/dL AST 159 H (14-35) U/L ALT 234 H (10-49) U/L Alkaline Phosphatase 81 (41-126) U/L Total Protein 5.8 L (6.2-8.2) g/dL Albumin 4.1 (3.8-4.9) g/dL Globulin 1.7 (1.6-3.3) g/dL Albumin/Globulin Ratio 2.41 (1.60-3.17) Ratio Hepatitis A IgM Ab Hep Bs Antigen Hep B Core IgM Ab Hep C IgG Ab 01/31/23 01/31/23 02/01/23 Range/Units 06:15 09:20 08:55 WBC (4.50-10.00) X 10*3/uL RBC (4.40-5.60) X 10*6/uL Hgb (13.0-17.0) g/dL Hct (39.6-50.0) % MCV (80.0-97.0) FL MCH (27.0-32.0) pg MCHC (32.0-37.0) g/dL RDW (11.5-14.5) % Plt Count (140-440) X 10*3/uL MPV (9.5-12.2) FL Immature Gran % (Auto) % Absolute Nucleated RBC % Neutrophils % % Lymphocytes % % Monocytes % % Eosinophils % % Basophils % % Immature Gran # (0.00-0.04) X 10*3/uL Neutrophils # (1.80-7.70) X 10*3/uL Lymphocytes # (0.90-5.00) X 10*3/uL Monocytes # (0.20-1.00) X 10*3/uL Eosinophils # (0.04-0.35) X 10*3/uL Basophils # (0.00-0.10) X 10*3/uL NRBC/100 WBC Diff (0.00-0.01) X 10*3/uL PT (9.9-11.9) sec INR (0.93-1.11) sec APTT 24.2 (22.0-30.0) sec Sodium 141 (135-145) mmol/L Potassium 3.8 (3.5-5.5) mmol/L Chloride 107 (96-109) mmol/L Carbon Dioxide 26 (21.6-31.8) mmol/L Anion Gap 8 (4.00-12.00) mmol/L BUN 10 (9.0-27.0) mg/dL Creatinine 0.66 (0.6-1.5) mg/dL Est GFR (CKD-EPI) (>=60) Est GFR (CKD-EPI)AfAm >90 (>60 ml/min/1.73 sqM) Est GFR (CKD-EPI)NonAf >90 (>60 ml/min/1.73 sqM) BUN/Creatinine Ratio (12.00-20.00) Ratio Glucose 106 H (70-110) mg/dL Calcium 8.8 (8.7-10.3) mg/dL Phosphorus (2.4-5.1) mg/dL Magnesium (1.5-2.4) mg/dL Total Bilirubin 1.0 (0.3-1.2) mg/dL AST 54 (14-35) U/L ALT 145 H (10-49) U/L Alkaline Phosphatase 79 (41-126) U/L Total Protein 5.8 L (6.2-8.2) g/dL Albumin 3.6 (3.8-4.9) g/dL Globulin 2.2 (1.6-3.3) g/dL Albumin/Globulin Ratio 1.6 (1.60-3.17) Ratio Hepatitis A IgM Ab Nonreactive Hep Bs Antigen Nonreactive Hep B Core IgM Ab Nonreactive Hep C IgG Ab Nonreactive Disposition Clinical Impression: Intractable pain, Mid back pain, Lumbar radiculopathy Disposition: ADMITTED IP TO THIS HOSP Condition: Stable Is patient prescribed a controlled substance at d/c from ED?: No Time of Disposition: 19:35
[2023-01-30] MEDS: SODIUM CHLORIDE 0.9% 1,000 ML IV SCH (20:29)
[2023-01-30] MEDS ORDERED: NICOTINE 21MG/24HR PATCH TRANSDERM STA (21:19)
[2023-01-31] MEDS ORDERED: DEXAMETHASONE SOD PHOSPHATE 10 MG/ML 1 ML VIAL IVP STA (00:34)
--- NOTE | 2023-01-31 00:43 | P.HPIM ---
History of Present Illness H&P Date: 01/30/23 Patient is a 52-year-old male with a PMH of chronic lower back pain, renal mass status post partial nephrectomy, who was transferred from [facility] where he presented to the emergency room with complaints of acute worsening of his lower back pain. Patient reports he has had long-standing lower back pain for which he has been following up with his PCP and was scheduled to see Dr. Grullon next month. The pain worsened this morning at around 11 AM and has been 9 out of 10, radiating down to his right leg with some paresthesias of the right leg. Denies right lower extremity weakness or gait abnormalities. Denies urinary or fecal incontinence and has passed urine multiple times throughout the day today. Denies pelvic or perineal paresthesias. He denies any recent trauma or falls. Denies any additional complaints. The patient had an extensive evaluation at [facility] which was all reviewed with CT lumbar spine without contrast showing mild degenerative changes at levels of L3 to L4 and L4 to L5 causing mild spinal canal stenosis and mild bilateral neural foraminal narrowing. Laboratory evaluation revealed obesity, 9.7, hemoglobin 15.3, platelet count 167, CRP less than 0.5. UA was unremarkable. ED documentation reviewed and case discussed with ED provider. Review of systems: Pertinent positives and negatives as discussed in HPI, a complete review of systems was performed and all other systems are negative. Physical examination: Vital signs reviewed General: non toxic, no distress, appears at stated age, normal weight Derm: no unusual rashes/lesions, warm Head: atraumatic, normocephalic, symmetric Eyes: EOMI, no lid lag, anicteric sclera, pupils equal round reactive to light ENT: Nose and ears atraumatic Neck: No cervical lymphadenopathy, trachea midline, supple Mouth: no lip lesion, mucus membranes moist Cardiovascular: S1S2 reg, no murmur, positive dorsalis pedis pulse bilateral, no edema Lungs: CTA bilateral, no rhonchi, no rales, no accessory muscle use Abdominal: soft, nontender to palpation, no guarding Ext: muscle strength 5 out of 5 in all 4 extremities grossly, no gross muscle atrophy, no contractures, lumbar spinal tenderness noted without paraspinal tenderness Neuro: CN II-XI grossly intact, no gross focal neuro deficits Psych: Alert, oriented, appropriate affect Assessment: Acute on chronic lumbar radiculopathy Imaging: CT lumbar spine without contrast showing mild degenerative changes at levels of L3 to L4 and L4 to L5 causing mild spinal canal stenosis and mild bilateral neural foraminal narrowing. Data Review: Laboratory evaluation revealed obesity, 9.7, hemoglobin 15.3, platelet count 167, CRP less than 0.5. UA was unremarkable. Plan: Status post Decadron 10 mg IV push Pain control Orthopedic surgery consulted Lumbar MRI ordered DVT prophylaxis: Lovenox Subq The patient is admitted with an anticipated greatter than 2 midnight stay for evaluation of LBP CODE STATUS: Full Code Discussed with: Patient Anticipated discharge place: Home Past Medical History Past Medical History: Cancer, GERD/Reflux, Sleep Apnea/CPAP/BIPAP Additional Past Medical History / Comment(s): HX RIGHT KIDNEY CANCER-09/07/20, WITH NEPRECTOMY. HX DIVERTICULITIS. CPAP USE. History of Any Multi-Drug Resistant Organisms: None Reported Past Surgical History: Appendectomy, Cholecystectomy, Hernia Repair, Orthopedic Surgery Additional Past Surgical History / Comment(s): BILATERAL CATARACTS REMOVED WITH LENS IMPLANTS, COLONOSCOPY, RIGHT NEPHRECTOMY. Past Anesthesia/Blood Transfusion Reactions: No Reported Reaction Past Psychological History: No Psychological Hx Reported Smoking Status: Current every day smoker Past Alcohol Use History: Occasional Additional Past Alcohol Use History / Comment(s): SMOKES 1 PPD SINCE AGE 15, trying to quit, down 4-5 cigarettes daily. Past Drug Use History: None Reported - Past Family History Father Family Medical History: Cancer Medications and Allergies Home Medications Medication Instructions Recorded Confirmed Type Gabapentin 300 mg PO TID 01/30/23 01/30/23 History HYDROcodone/APAP 5-325MG [[place] 1 tab PO Q6H PRN 01/30/23 01/30/23 History 5-325] Omeprazole [PriLOSEC] 20 mg PO HS 01/30/23 01/30/23 History Allergies Allergy/AdvReac Type Severity Reaction Status Date / Time methylprednisolone AdvReac Abnormal Verified 01/30/23 19:58 [From Medrol] BP & Confusion Physical Exam Vitals: Vital Signs Temp Pulse Pulse Resp BP BP Pulse Ox 01/30/23 22:21 97.6 F 59 L 16 142/88 94 L 01/30/23 20:15 79 19 120/86 01/30/23 18:27 84 18 95 01/30/23 17:40 97.0 F L 84 20 131/93 95 Intake and Output 01/30/23 01/30/23 01/31/23 14:59 22:59 06:59 Other: # Voids 1 Weight 125.191 kg
[2023-01-31] MEDS: HYDROmorphone 1 MG/ML 1 ML SYRINGE IVP PRN ×6 (01:53→23:37)
[2023-01-31] MEDS ORDERED: HYDROcodone/APAP 5-325MG 1 EACH TAB PO PRN (08:48)
[2023-01-31] MEDS ORDERED: PROCHLORPERAZINE INJ 10 MG/2 ML VIAL IVP PRN (08:49)
[2023-01-31] MEDS ORDERED: ONDANSETRON 4 MG/2 ML VIAL IVP PRN (08:50)
[2023-01-31] MEDS ORDERED: ENOXAPARIN 40 MG/0.4 ML SYRINGE SQ SCH (09:00)
[2023-01-31] MEDS: GABAPENTIN 300 MG CAP PO SCH ×3 (09:04→21:06)
[2023-01-31] MEDS: SENNOSIDES-DOCUSATE SODIUM 1 EACH TAB PO SCH (09:04)
[2023-01-31] MEDS: SODIUM CHLORIDE 0.9% 1,000 ML IV SCH (09:07)
[2023-01-31] MEDS: polyethylene glycoL 3350 17 GM POWD.PACK PO SCH (09:07)
[2023-01-31 09:17] LABS: Basophils # (A) 0.02 X 10*3/uL (0.00-0.10); Basophils % (A) 0.3 %; Eosinophils # (A) 0.08 X 10*3/uL (0.04-0.35); Eosinophils % (A) 1.1 %; HCT 44.5 % (39.6-50.0); HGB 15.2 g/dL (13.0-17.0); Lymphocytes # (A) 1.65 X 10*3/uL (0.90-5.00); Lymphocytes % (A) 21.8 %; MCHC 34.2 g/dL (32.0-37.0); MCV 87.9 FL (80.0-97.0); Mean Platelet Volume 11.4 FL (9.5-12.2); Monocytes # (A) 0.71 X 10*3/uL (0.20-1.00); Monocytes % (A) 9.4 %; NRBC Per 100 WBC 0 X 10*3/uL (0.00-0.01); Neutrophils # (A) 5.07 X 10*3/uL (1.80-7.70); Platelet Count 153 X 10*3/uL (140-440); RBC 5.06 X 10*6/uL (4.40-5.60); WBC 7.56 X 10*3/uL (4.50-10.00)
[2023-01-31 09:28] LABS: ALT 234 U/L (10-49); AST 159 U/L (14-35); Albumin 4.1 g/dL (3.8-4.9); Albumin/Globulin Ratio 2.41 Ratio (1.60-3.17); Alkaline Phosphatase 81 U/L (41-126); Blood Urea Nitrogen 9.8 mg/dL (9.0-27.0); Calcium 8.9 mg/dL (8.7-10.3); Carbon Dioxide 26.2 mmol/L (21.6-31.8); Chloride 107 mmol/L (96-109); Globulin 1.7 g/dL (1.6-3.3); Glucose 100 mg/dL (70-110); Magnesium 1.9 mg/dL (1.5-2.4); Phosphorus 3.5 mg/dL (2.4-5.1); Potassium 3.8 mmol/L (3.5-5.5); Sodium 143 mmol/L (135-145); Total Bilirubin 1.6 mg/dL (0.3-1.2); Total Protein 5.8 g/dL (6.2-8.2)
[2023-01-31] MEDS ORDERED: diazePAM 5 MG TAB PO STA (09:36)
--- NOTE | 2023-01-31 09:55 | P.CNOR ---
History of Present Illness - HPI Consult date: 01/31/23 Consult reason: low back pain, other (Right lower extremity pain) History of present illness: History of Presenting Illness Patient is a pleasant 52-year-old male who was transferred from [facility] due to intractable low back pain that radiates into the right lower extremity with mild weakness. Patient does have a PMH of low back with radiculopathy into bilateral lower extremities, without numbness and tingling. Patient was seen 01/25/23 in our office as a new patient and was scheduled for a CT scan of the lumbar spine and to follow up with Dr. Sherman after test. He was also provided a medrol dose aaron at this visit and called back that he had a reaction that resulted into a panic attack. Gabapentin had been prescribed. Patient reports he was attempting to go to work and was unable to get up due to severe pain rating 10/10 of the right lower back that radiates into the right lower extremity, with numbness. The patient had an extensive evaluation at [facility] which was all reviewed with CT lumbar spine without contrast showing mild degenerative changes at levels of L3 to L4 and L4 to L5 causing mild spinal canal stenosis and mild bilateral neural foraminal narrowing. Patient does have a past medical history of right renal carcinoma with nephrectomy, GERD, and sleep apnea. Patient does report that he has had past CHARU injection and/or possible facet block of the lumbar spine with ablation performed approx 1.5 yrs ago. Patient seen and examined this morning. Patient was resting comfortably in bed. Spouse at bedside. Patient continues to report sharp right low back pain that radiates into the right lower extremity with numbness. Upon examination patient has tenderness over the right sacroiliac joint. Patient is able to perform bed exercises with mild difficulty of the right lower extremity due to increased pain. Medications will be reviewed and adjusted. He states that he is urinating without difficulty last bowel movement was approximately 2 days ago. Patient denies any fevers/chills/shortness of breath/chest pain, perineal numbness or tingling, bowel or bladder incontinence/retention. Review of Systems Pertinent positives and negatives as discussed in HPI, a complete review of systems was performed and all other systems are negative. Physical Examination Inspection: Negative for any open fractures, ecchymosis, significant erythema/ulcers. Sensation: Sensation is equal, symmetric, bilaterally intact throughout the upper and left lower extremities, numbness sensation present in the right lower extremity. Palpation: Tender to palpation over the Right Sacroiliac joint. Range of motion: Patient does have full range of motion bilateral upper and lower extremities on exam, effort to lift right foot off bed due to increase of low back pain Motor: 5/5 in all major motor groups in the bilateral upper and lower extremities Special tests: Negative Homans bilaterally. Negative Becky bilaterally. Negative clonus bilaterally. Neurovascular: Radial pulse intact, 2+ bilaterally. Cap refill under 3 seconds in digits upper extremities. Assessment and Plan Lumbar spondylosis L2-L3, L3-L4, L4-L5 facet arthropathy Right Sacroiliitis Right lower extremity radiculopathy Mechanical low back pain -Appreciate consult and team management -Continue with pain management; IV dilaudid, [place], and Gabapentin -Consult placed for pain management, recommend Right SI injection -MRI of the Thoracic and Lumbar Spine with/without contrast -PT/OT: WBAT with walker as needed I reviewed and discussed this case with my attending Dr. Sherman, whom has reviewed this chart and films and is in agreement with assessment and plan of care as outlined above. I have personally seen and examined the patient, performed the documentation and the assessment and plan as written. Number of minutes spent on the visit: 20m. Past Medical History Past Medical History: Cancer, GERD/Reflux, Sleep Apnea/CPAP/BIPAP Additional Past Medical History / Comment(s): HX RIGHT KIDNEY CANCER-09/07/20, WITH NEPRECTOMY. HX DIVERTICULITIS. CPAP USE. History of Any Multi-Drug Resistant Organisms: None Reported Past Surgical History: Appendectomy, Cholecystectomy, Hernia Repair, Orthopedic Surgery Additional Past Surgical History / Comment(s): BILATERAL CATARACTS REMOVED WITH LENS IMPLANTS, COLONOSCOPY, RIGHT NEPHRECTOMY. Past Anesthesia/Blood Transfusion Reactions: No Reported Reaction Past Psychological History: No Psychological Hx Reported Smoking Status: Current every day smoker Past Alcohol Use History: Occasional Additional Past Alcohol Use History / Comment(s): SMOKES 1 PPD SINCE AGE 15, trying to quit, down 4-5 cigarettes daily. Past Drug Use History: None Reported - Past Family History Father Family Medical History: Cancer Medications and Allergies Home Medications Medication Instructions Recorded Confirmed Type Gabapentin 300 mg PO TID 01/30/23 01/30/23 History HYDROcodone/APAP 5-325MG [[place] 1 tab PO Q6H PRN 01/30/23 01/30/23 History 5-325] Omeprazole [PriLOSEC] 20 mg PO HS 01/30/23 01/30/23 History Allergies Allergy/AdvReac Type Severity Reaction Status Date / Time methylprednisolone AdvReac Abnormal Verified 01/30/23 19:58 [From Medrol] BP & Confusion Results - Labs Result Diagrams: 01/31/23 06:15 01/31/23 06:15
[2023-01-31 11:34] LABS: INR 1.09 sec (0.93-1.11); Prothrombin Time 11.7 sec (9.9-11.9)
--- NOTE | 2023-01-31 12:08 | P.PAINPG ---
Objective - Vital Signs Vital signs: Vital Signs Temp 98.1 F 01/31/23 07:00 Pulse 65 01/31/23 07:00 Resp 16 01/31/23 07:00 BP 134/80 01/31/23 07:00 Pulse Ox 97 01/31/23 07:00 FiO2 Intake & Output 01/30/23 01/31/23 01/31/23 18:59 06:59 18:59 Intake Total 240 Balance 240 Weight 125.191 kg 125.191 kg Intake: Oral 240 Other: Voiding Method Toilet # Voids 3 - Labs CBC & Chem 7: 01/31/23 06:15 01/31/23 06:15 Labs: Abnormal Lab Results - Last 24 Hours (Table) 01/31/23 Range/Units 06:15 Total Bilirubin 1.6 H (0.3-1.2) mg/dL AST 159 H (14-35) U/L ALT 234 H (10-49) U/L Total Protein 5.8 L (6.2-8.2) g/dL PQRS Measure Charge Sheet Comment: HISTORY OF PRESENT ILLNESS: A 52 yr old inpatient male w at side as a referral from [facility] presents today w severe and chronic LBP secondary to R Sacroiliitis, DDD, spondylosis and facet arthropathy without myelopathy for evaluation. Pt states pain level is provoked at 10/10 in intensity, constant, localized in the R lower lumber spine, predominantly axial, sharp in character w occasional shooting pain towards the R buttocks, R hip and R inner thigh. Pain is provoked by sitting for periods > 5 min. Pt is currently sitting on his bed veered to the L. Pain is alleviated by injections in 2020- 2021, medications ([place] 5/325mg q4h prn, Dilaudid 1mgIVP q3h prn, Toradol 15mg/mL IM q6h prn, Neurontin 300mg TID), heat, manual massage to area, repositioning and rest. PMH: OA, Renal CA (2020), GERD, BRAYAN PSH: R Nephrectomy, Appendectomy, Cholecystectomy, Hernia Repair, Orthopedic Surgery, BL Cataract Extraction w Lens Implants, Colonoscopy SH: Daily tobacco use, Occasional ETOH use, No illicit drug use FH: Fa- CA All: See list Meds: See list REVIEW OF ORGAN SYSTEMS: CONSTITUTIONAL: No fevers or chills. No recent weight loss. NEUROLOGICAL: + numbness and tingling along the distal e xtremities. No seizure disorders or headaches. MUSCULOSKELETAL: + pain PSYCHIATRIC: Denies current depression or suicidal thoughts. Physical Examinations : Constitutional : Cooperative , not in acute distress . Neurologic : Cranial nerve II to XII intact. No focal neurological deficits. Psychiatric : alert & oriented x 3. Matching mood & appropriate affect. Judgment & insight intact. Musculoskeletal : Cervical Spine Motor strength in the deltoid and biceps: Normal right side. Normal Left side Motor strength biceps and the wrist extensors: Normal right side . Normal left side Motor strength in the triceps muscle: Normal right side. Normal left side Deep tendon reflexes: Normal at the biceps. Normal at Brachioradialis. Normal at triceps Vertebral body tenderness to deep palpation over Cervical facet loading test: positive bilaterally Spurling test: positive bilaterally Neck distraction test: positive bilaterally Becky sign: positive bilaterally Lumbar spine Motor strength lower extremities ,thigh and legs 5/5 Right side , 5/5 Left side Deep tendon reflexes : Normal Knee Jerk. Normal Ankle Jerk Vertebral body tenderness over Dillard Test positive Lumbar facet Loading Test: positive Right / positive Left Range of motion of the lumbar spine Flexion 30 degrees, extension 10 degrees Straight Leg Raise test: Left/ Right positive at degrees Ascencion test: positive right / positive left. Severe tenderness over the Sacroiliac joint on the Right / Left sides Gaenslen test: positive bilaterally Seated flexion test: positive bilaterally. Sacral spine : Severe tenderness over the Sacroiliac joint: right side / left side Range of motion: Flexion of the lumbar spine <60 degrees Range of motion: Extension of the lumbar spine <20 degrees Gaenslen's Test positive on R Ascencion test: positive right side / left side Thigh Thrust Test R positive Sacral Thrust Test Imaging: CT Lumbar spine Assessment/ Plan : R Sacroiliitis Recommendation of R SI injection #1. May need a series f injections for optimal pain relief. Risks, benefits of procedure discussed and patient verbalized understanding. Admits to anti- coagulant use or medical history of diabetes. Protocol for discontinuation/ continuation of medications joseph procedure discussed. All questions answered. I have spent greater than 30 minutes on patient care today. Dr Diaz was available by phone for the evaluation of this patient. The time was used to review the medical records including relevant urine studies and Prescription history (MAPs), review of the available imaging, evaluation and examination of the patient, coordination of care with the medical staff and if applicable referring physicians, as well as creation of the medical record PQRS Narrative: Smoking Status Current every day smoker Blood Pressure [Right Arm] 134/80 Blood Pressure 120/86 Pain Intensity 4 Pain Scale Used Numeric (1 - 10) Scale Used Numeric (1 - 10) Home Medications: Ambulatory Orders Gabapentin 300 mg PO TID 01/30/23 HYDROcodone/APAP 5-325MG [[place] 5-325] 1 tab PO Q6H PRN 01/30/23 Omeprazole [PriLOSEC] 20 mg PO HS 01/30/23 Controlled Substance Measures - Controlled Substance Measures Is patient prescribed a controlled substance at discharge?: No
[2023-01-31] MEDS ORDERED: diazePAM 5 MG TAB PO ONE (12:15)
--- NOTE | 2023-01-31 14:22 | P.PN ---
Subjective Progress Note Date: 01/31/23 Hospital Course: 52-year-old male with a PMH of chronic lower back pain, renal mass status post partial nephrectomy, who was transferred from [facility] where he presented to the emergency room with complaints of acute worsening of his lower back pain. The patient had an extensive evaluation at [facility] with CT lumbar spine without contrast showing mild degenerative changes at levels of L3 to L4 and L4 to L5 causing mild spinal canal stenosis and mild b ilateral neural foraminal narrowing. Laboratory evaluation revealed obesity, 9.7, hemoglobin 15.3, platelet count 167, CRP less than 0.5. UA was unremarkable. Orthopedic surgery consulted. Spine MRI pending. Pain management also consulted. Subjective: Patient seen and examined at bedside. No acute events. Back pain is improved. Pertinent positives and negatives as discussed above, a complete review of systems was performed and all other systems are negative. Vitals Signs Reviewed. General: nontoxic, no distress, appears at stated age Derm: warm, dry Head: atraumatic, normocephalic, symmetric Eyes: EOMI, no lid lag, anicteric sclera Mouth: no lip lesion, mucus membranes moist Cardiovascular: S1S2 reg, no murmur Lungs: CTA bilateral, no rhonchi, no rales , no accessory muscle use Abdominal: soft, nontender to palpation, no guarding, no appreciable organomegaly Ext: no gross muscle atrophy, no edema, no contractures, positive right-sided straight leg test Neuro: CN II-XI grossly intact, no focal neuro deficits Psych: Alert, oriented, appropriate affect Data Reviewed Today: Pertinent Labs: No new labs Imaging: Thoracic lumbar spine completed, pending results Assessment and Plan: Acute on chronic back pain Acute right-sided lumbar radiculopathy Lumbar spondylosis Sacroiliitis -Pain management note reviewed, recommending right SI joint injection -Orthospine note reviewed, pending MRI -Pain control with gabapentin 300 3 times a day, Dilaudid IV as needed, monitor for respiratory depression -Continue bowel regimen -PT consulted History of renal mass status post partial nephrectomy -Renal function stable GERD - continue omeprazole 20 daily DVT ppx: scds Code status: FC Anticipated discharge place: pending clinical course Anticipated discharge time: pending clinical course Objective - Vital Signs Vital signs: Vital Signs Temp 98.1 F 01/31/23 07:00 Pulse 65 01/31/23 07:00 Resp 16 01/31/23 07:00 BP 134/80 01/31/23 07:00 Pulse Ox 97 01/31/23 07:00 FiO2 Intake & Output 01/30/23 01/31/23 01/31/23 18:59 06:59 18:59 Intake Total 240 Balance 240 Weight 125.191 kg 125.191 kg Intake: Oral 240 Other: Voiding Method Toilet # Voids 3 - Labs CBC & Chem 7: 01/31/23 06:15 01/31/23 06:15 Labs: Abnormal Lab Results - Last 24 Hours (Table) 01/31/23 Range/Units 06:15 Total Bilirubin 1.6 H (0.3-1.2) mg/dL AST 159 H (14-35) U/L ALT 234 H (10-49) U/L Total Protein 5.8 L (6.2-8.2) g/dL
[2023-01-31] MEDS: NICOTINE 21MG/24HR PATCH TRANSDERM SCH (15:18)
[2023-01-31] MEDS: PANTOPRAZOLE 40 MG TABLET PO SCH (15:18)
--- NOTE | 2023-01-31 17:37 | MR ---
EXAMINATION TYPE: MR aisha/lsda wo/w con DATE OF EXAM: 01/31/2023 1:37 PM CLINICAL INDICATION:Male, 52 years old with history of Intractable pain, RLE radiculopathy; PHH, Intr actable pain, RLE radiculopathy. Hx renal cancer 2020. COMPARISON: CT 12/29/2020. TECHNIQUE: Multi planar, multi sequence imaging was performed utilizing: T1-weighted, T2-weighted, a nd turbo inversion recovery imaging of the thoracic and lumbar spine. IV Contrast: 12 cc Gadavist. None. FINDINGS: Alignment: There is increased kyphosis of the thoracic spine which the spinal cord impresses upon the posterior aspect of the vertebral bodies. Cord: The conus medullaris and the distal spinal cord appear unremarkable with regards to their signa l intensity and morphology. Bones/Discs: Multilevel degeneration changes throughout the spine with osteophyte formation disc spac e narrowing and facet arthropathy. Diffuse low-attenuation of the bone marrow. Scattered high T2 sign al THORACIC: T7-T8 and T8-T9 central osteophyte versus which mildly impresses on the spinal cord. Cord s ignal is maintained. No evidence significant spinal canal or neural foraminal stenosis. Spinal cord i s within normal limits for cord signal. No abnormal postcontrast enhancement. The spinal cord impress es upon the vertebral bodies of the thecal sac due to increased kyphosis. LUMBAR: No abnormal postcontrast enhancement. T12-L1: No evidence of significant spinal canal stenosis or neural foraminal stenosis. L1-L2: No evidence of significant spinal canal stenosis or neural foraminal stenosis. L2-L3: No evidence of significant spinal canal stenosis or neural foraminal stenosis. L3-L4: No evidence of significant spinal canal stenosis or neural foraminal stenosis. L4-L5: No evidence of significant spinal canal stenosis or neural foraminal stenosis. L5-S1: The disc is rounded posterior morphology without significant spinal canal stenosis. Facet join t arthropathy with mild neural foraminal stenosis. Other findings: None. IMPRESSION: 1. No definitive evidence of disc herniation or significant spinal canal stenosis. No abnormal postc ontrast enhancement. 2. Moderate disc degeneration with associated osteoarthritic changes. No foramen appear patent bilat erally throughout the thoracic and lumbar spine. 3. T7-T8 central disc protrusion versus osteophyte and T8-T9 osteophyte which mildly impresses on th e anterior spinal cord. 4. Diffuse red marrow conversion can be seen in the setting of tobacco abuse, anemia, or myeloprolif erative disorder.
[2023-02-01 01:56] LABS: Hepatitis A Antibody IgM Nonreactive; Hepatitis B Core IgM Nonreactive; Hepatitis B Surface Antigen Nonreactive; Hepatitis C IgG Antibody Nonreactive
[2023-02-01] MEDS: HYDROmorphone 1 MG/ML 1 ML SYRINGE IVP PRN ×4 (06:21→21:23)
[2023-02-01] MEDS: HYDROcodone/APAP 5-325MG 1 EACH TAB PO PRN ×3 (08:06→19:55)
[2023-02-01] MEDS: NICOTINE 21MG/24HR PATCH TRANSDERM SCH (08:07)
[2023-02-01] MEDS: SENNOSIDES-DOCUSATE SODIUM 1 EACH TAB PO SCH (08:07)
[2023-02-01] MEDS: polyethylene glycoL 3350 17 GM POWD.PACK PO SCH (08:07)
[2023-02-01] MEDS: GABAPENTIN 300 MG CAP PO SCH ×3 (08:07→19:56)
--- NOTE | 2023-02-01 09:56 | P.PN ---
Subjective Progress Note Date: 02/01/23 Principal diagnosis: 1. Low back pain 2. Right lower extremity pain Patient seen and examined this morning. Patient reports no relief of his symptoms. He continues to report severe low back pain that radiates into the right lower extremity with numbness and tingling. Patient is scheduled at 11:30 today for a right SI joint injection. Patient is currently denying this pro cedure. Patient is demanding to see Dr. Sherman. Patient reports he does not understand the need for the injection if he has chronic low back pain. Education and emotional support has been provided. At this time patient continues to refuse intervention. Dr. Sherman will be up this afternoon to see patient to answer his questions and concerns. Objective - Vital Signs Vital signs: Vital Signs Temp 97.9 F 02/01/23 07:00 Pulse 70 02/01/23 07:00 Resp 16 02/01/23 07:00 BP 139/91 02/01/23 07:00 Pulse Ox 95 02/01/23 07:00 FiO2 Intake & Output 01/31/23 02/01/23 02/01/23 18:59 06:59 18:59 Intake Total 480 Balance 480 Intake: Oral 480 Other: Voiding Method Toilet # Voids 3 1 - Exam Inspection: Negative for any open fractures, ecchymosis, significant erythema/ulcers. Sensation: Sensation is equal, symmetric, bilaterally intact throughout the upper and left lower extremities, numbness sensation present in the right lower extremity. Palpation: Tender to palpation over the Right Sacroiliac joint. Range of motion: Patient does have full range of motion bilateral upper and lower extremities on exam, effort to lift right foot off bed due to increase of low back pain Motor: 5/5 in all major motor groups in the bilateral upper and lower extremities Special tests: Negative Homans bilaterally. Negative Becky bilaterally. Negative clonus bilaterally. Neurovascular: Radial pulse intact, 2+ bilaterally. Cap refill under 3 seconds in digits upper extremities. - Labs CBC & Chem 7: 01/31/23 06:15 01/31/23 06:15 Assessment and Plan Assessment: Lumbar spondylosis L2-L3, L3-L4, L4-L5 facet arthropathy Right Sacroiliitis Right lower extremity radiculopathy Mechanical low back pain Plan: -Appreciate consult and team management -Continue with pain management; IV dilaudid, [place], and Gabapentin -Recommendation of Right SI injection -PT/OT: WBAT with walker as needed -We will continue to follow during this stay
[2023-02-01 10:10] LABS: ALT 145 U/L (4-49); AST 54 U/L (17-59); African American GFR (CKD) >90 (>60 ml/min/1.73 sqM); Albumin 3.6 g/dL (3.5-5.0); Albumin/Globulin Ratio 1.6; Alkaline Phosphatase 79 U/L (38-126); Anion Gap 8 mmol/L; Blood Urea Nitrogen 10 mg/dL (9-20); Calcium 8.8 mg/dL (8.4-10.2); Carbon Dioxide 26 mmol/L (22-30); Chloride 107 mmol/L (98-107); Globulin 2.2 g/dL; Glucose 106 mg/dL (74-99); Non-African American GFR(CKD) >90 (>60 ml/min/1.73 sqM); Potassium 3.8 mmol/L (3.5-5.1); Sodium 141 mmol/L (137-145); Total Protein 5.8 g/dL (6.3-8.2)
--- NOTE | 2023-02-01 10:15 | US ---
EXAMINATION TYPE: US abdomen limited DATE OF EXAM: 02/01/2023 COMPARISON: NONE CLINICAL INDICATION: Male, 52 years old with history of transaminitis; transaminitis TECHNIQUE: Multiple sonographic images of the right upper quadrant are obtained. FINDINGS: EXAM MEASUREMENTS: Liver Length: 16.9 cm Gallbladder Wall: Surgically absent CBD: 0.6 cm Right Kidney: 10.7x5.6x6.1 cm DESIGN INTERN NOTES: Pancreas: mostly Obscured by bowel gas Liver: increased size, echogenicity, and attenuation Gallbladder: Surgically absent Evidence for sonographic Eduardo's sign: No CBD: upper limits, post andreina Right Kidney: 1.8x1.8x2.4cm hypoechoic are mid kidney, HX superior pole renal cancer with partial ne phrectomy exam limited by bowel and body habitus IMPRESSION: 1. Borderline hepatomegaly correlate for hepatic steatosis or hepatocellular disease including hepati tis. 2. Postcholecystectomy changes. 3. Indeterminate right renal lesion. Recommend CT scan with contrast to exclude solid neoplasm.
[2023-02-01] MEDS ORDERED: ALPRAZolam 1 MG TAB PO STA (10:26)
[2023-02-01] MEDS ORDERED: MAGNESIUM CITRATE 296 ML BOTTLE PO ONE (10:42)
[2023-02-01] MEDS ORDERED: LACTATED RINGERS 1,000 ML IV SCH (10:56)
[2023-02-01] MEDS ORDERED: HYDROmorphone 0.5 MG/0.5 ML SYRINGE ONE ×2 (11:02→11:04)
[2023-02-01] MEDS: HYDROmorphone 0.5 MG/0.5 ML SYRINGE IVP ONE ×2 (11:05→11:19)
[2023-02-01] MEDS ORDERED: HYDROmorphone 0.5 MG/0.5 ML SYRINGE IVP ONE (11:05)
[2023-02-01] MEDS ORDERED: DEXAMETHASONE SOD PHOSPHATE 10 MG/ML 1 ML VIAL ONE (12:09)
[2023-02-01] MEDS ORDERED: MIDAZOLAM 2 MG/2 ML VIAL ONE (12:09)
[2023-02-01] MEDS ORDERED: ROPIVACAINE 5MG/ML 20ML VIAL ONE (12:09)
[2023-02-01] MEDS ORDERED: fentaNYL (PF) 50 MCG/ML 2 ML AMP ONE (12:09)
--- NOTE | 2023-02-01 12:40 | P.PCN ---
Description of Procedure: Preprocedure diagnosis. Sacroiliac joint arthropathy. Postprocedure diagnosis. As above. Procedure done. Bilateral sacroiliac joint injection with local anesthetics and steroid under fluoroscopic guidance. Anesthesia. Local anesthetic infiltration and IV sedation with Versed 4 mg. Continuous EKG, pulse ox, blood pressure, and verbal communication was maintained with the patient in OR. Blood loss. Minimal. Indication. Sacroiliac joint arthropathy. Discussed with patient and his the procedure, alternatives, complications which may include infection,bleeding, nerve damage, aggravation of pain which could be permanent. Patient understands and questions were answered. Procedure note. After getting consent patient in OR in prone position. Back prepped with chlorhexidine and draped in sterile manner. After injecting 10 mL of 1% lidocaine subcutaneously, a 22-gauge spinal needle was introduced under tunnel vision of the fluoroscope in the lower and posterior one third of right sacroiliac joint. After needle position confirmation by AP and crosstable lateral view, After repeat negative aspiration, 2.5 mL solution was injected which consists of 1.5 ml of 0.5% Ropivacaine mixed with 1 mL of 10 mg Dexamethason. Depo-Medrol was not used secondary to patient's possible ALLERGIC reaction to Depo-Medrol. In exactly same way left sacroiliac joint was injected with same amount of solution. After the procedure needles were taken out. Bandage applied. Disposition. Patient tolerated the procedure well. No complication. Patient was discharged to his room in stable condition.
--- NOTE | 2023-02-01 12:49 | FL ---
EXAMINATION TYPE: FL guided pain mgmt statistic DATE OF EXAM: 02/01/2023 HISTORY: Fluoroscopy time Total dose area product (DAP) in uGy*m?, mGy*cm? (or similar): 0.01957 IMPRESSION: 1. Fluoroscopy time.
--- NOTE | 2023-02-01 15:40 | P.PN ---
Subjective Progress Note Date: 02/01/23 Hospital Course: 52-year-old male with a PMH of chronic lower back pain, renal mass status post partial nephrectomy, who was transferred from [facility] where he presented to the emergency room with complaints of acute worsening of his lower back pain. The patient had an extensive evaluation at [facility] with CT lumbar spine without contrast showing mild degenerative changes at levels of L3 to L4 and L4 to L5 causing mild spinal canal stenosis and mild b ilateral neural foraminal narrowing. Laboratory evaluation revealed obesity, 9.7, hemoglobin 15.3, platelet count 167, CRP less than 0.5. UA was unremarkable. Orthopedic surgery consulted. Spine MRI did not show any definitive evidence of disc herniation or significant spinal canal stenosis, mod erate disc degeneration with associated osteoarthritic changes, T7 to T8 central disc protrusion versus osteophyte. Pain management also consulted. Status post right SI joint injection. Subjective: Patient seen and examined at bedside. No acute events. Back pain still persistent. Denies any significant radicular symptoms. Pertinent positives and negatives as discussed above, a complete review of systems was performed and all other systems are negative. Vitals Signs Reviewed. General: nontoxic, no distress, appears at stated age Derm: warm, dry Head: atraumatic, normocephalic, symmetric Eyes: EOMI, no lid lag, anicteric sclera Mouth: no lip lesion, mucus membranes moist Cardiovascular: S1S2 reg, no murmur Lungs: CTA bilateral, no rhonchi, no rales , no accessory muscle use Abdominal: soft, nontender to palpation, no guarding, no appreciable organomegaly Ext: no gross muscle atrophy, no edema, no contractures, positive right-sided straight leg test, significant tenderness to palpation in lumbar spine Neuro: CN II-XI grossly intact, no focal neuro deficits Psych: Alert, oriented, appropriate affect Data Reviewed Today: Pertinent Labs: Creatinine 0.66, total bilirubin 1, AST 54, ALT 145 Imaging: Thoracic lumbar spine completed, pending results Assessment and Plan: Acute on chronic back pain Acute right-sided lumbar radiculopathy Lumbar spondylosis Sacroiliitis -Pain management procedure note reviewed, status post SI joint injection -Orthospine note reviewed, supportive care, may need outpatient follow-up for surgery in the future -Pain control with gabapentin 300 3 times a day, Dilaudid IV as needed, monitor for respiratory depression -Continue bowel regimen -Half a bottle of mag citrate ordered -PT consulted Transaminitis, improving -Acute hepatitis panel negative -Abdominal ultrasound shows likely hepatic steatosis versus hepatitis, also noted to have right renal lesion which was indeterminant, the computed tomography scan with contrast to exclude solid neoplasm History of renal mass status post partial nephrectomy -Renal function stable -Outpatient follow-up GERD - continue omeprazole 20 daily DVT ppx: scds Code status: FC Anticipated discharge place: pending clinical course Anticipated discharge time: pending clinical course Due to intractable back pain, failed observation, patient changed to inpatient status. Objective - Vital Signs Vital signs: Vital Signs Temp 97.9 F 02/01/23 10:58 Pulse 70 02/01/23 14:00 Resp 22 02/01/23 11:22 BP 150/96 02/01/23 11:22 Pulse Ox 98 02/01/23 11:22 FiO2 Intake & Output 01/31/23 02/01/23 02/01/23 18:59 06:59 18:59 Intake Total 480 272 Output Total 250 Balance 480 22 Intake: IV 50 Oral 480 222 Output: Urine 250 Other: Voiding Method Toilet Toilet # Voids 3 1 3 - Labs CBC & Chem 7: 01/31/23 06:15 02/01/23 08:55 Labs: Abnormal Lab Results - Last 24 Hours (Table) 02/01/23 Range/Units 08:55 Glucose 106 H (74-99) mg/dL ALT 145 H (4-49) U/L Total Protein 5.8 L (6.3-8.2) g/dL
[2023-02-01] MEDS: PANTOPRAZOLE 40 MG TABLET PO SCH (19:56)
[2023-02-02] MEDS: HYDROmorphone 1 MG/ML 1 ML SYRINGE IVP PRN ×3 (01:29→09:17)
[2023-02-02 07:56] VITALS: BP 140/81; PULSE 65; RESP 22; TEMP 97.8
--- NOTE | 2023-02-02 08:19 | P.PN ---
Subjective Progress Note Date: 02/02/23 Principal diagnosis: 1. Low back pain 2. Right lower extremity pain Patient seen and examined this morning. Patient is resting comfortably in bed. Patient did receive bilateral SI joint injections yesterday 02/01/2023 performed by pain management. Patient reports this morning that he has had minimal relief at this time. Patient describes an aching with intermittent sharp pain in the low back that radiates into bilateral hips. He is ambulating in room with no assisted devices. Spouse is present at bedside. Patient is cleared from orthopedic standpoint for discharge. No acute concerns at this time. Objective - Vital Signs Vital signs: Vital Signs Temp 97.8 F 02/02/23 07:41 Pulse 65 02/02/23 07:41 Resp 22 02/02/23 07:41 BP 140/81 02/02/23 07:41 Pulse Ox 92 L 02/02/23 07:41 FiO2 Intake & Output 02/01/23 02/02/23 02/02/23 18:59 06:59 18:59 Intake Total 272 Output Total 250 Balance 22 Intake: IV 50 Oral 222 Output: Urine 250 Other: Voiding Method Toilet Toilet # Voids 3 1 - Exam Inspection: Negative for any open fractures, ecchymosis, significant e rythema/ulcers. Sensation: Sensation is equal, symmetric, bilaterally intact throughout the upper and left lower extremities. Palpation: Tender to palpation over the Right Sacroiliac joint. Range of motion: Patient does have full range of motion bilateral upper and lower extremities on exam Motor: 5/5 in all major motor groups in the bilateral upper and lower extremities Special tests: Negative Homans bilaterally. Negative Becky bilaterally. Negative clonus bilaterally. Neurovascular: Radial pulse intact, 2+ bilaterally. Cap refill under 3 seconds in digits upper extremities. - Labs CBC & Chem 7: 01/31/23 06:15 02/01/23 08:55 Labs: Abnormal Lab Results - Last 24 Hours (Table) 02/01/23 Range/Units 08:55 Glucose 106 H (74-99) mg/dL ALT 145 H (4-49) U/L Total Protein 5.8 L (6.3-8.2) g/dL Assessment and Plan Assessment: Lumbar spondylosis L2-L5 facet arthropathy Right Sacroiliitis Right lower extremity radiculopathy Mechanical low back pain Plan: -Appreciate consult and team management -Continue with pain management; IV dilaudid, Omak, and Gabapentin -PT/OT: WBAT -Patient is cleared from orthopedic standpoint for discharge, and a follow-up in office outpatient.
[2023-02-02] MEDS: GABAPENTIN 300 MG CAP PO SCH (09:19)
[2023-02-02] MEDS: SENNOSIDES-DOCUSATE SODIUM 1 EACH TAB PO SCH (09:19)
[2023-02-02] MEDS: polyethylene glycoL 3350 17 GM POWD.PACK PO SCH (09:19)
[2023-02-02] MEDS: NICOTINE 21MG/24HR PATCH TRANSDERM SCH (09:19)
--- NOTE | 2023-02-02 10:50 | P.DS ---
Providers Date of admission: 02/01/23 13:35 Expected date of discharge: 02/02/23 Attending physician: Eva Dunne MD Consults: 01/30/23 19:34 Consult Physician Routine Consulting Provider: Renard Sherman Consult Reason/Comments: known Do you want consulting provider notified?: Yes Primary care physician: Heath Encinas MD Hospital Course: Discharge Diagnosis: Acute on chronic back pain Acute right-sided lumbar radiculopathy Lumbar spondylosis Sacroiliitis Transaminitis Hepatic steatosis History of renal mass status post partial nephrectomy GERD Hospital Course: 52-year-old male with a PMH of chronic lower back pain, renal mass status post partial nephrectomy, who was transferred from [facility] where he presented to the emergency room with complaints of acute worsening of his lower back pain. The patient had an extensive evaluation at [facility] with CT lumbar spine without contrast showing mild degenerative changes at le vels of L3 to L4 and L4 to L5 causing mild spinal canal stenosis and mild bilateral neural foraminal narrowing. Laboratory evaluation revealed obesity, 9.7, hemoglobin 15.3, platelet count 167, CRP less than 0.5. UA was unremarkable. Orthopedic surgery consulted. Spine MRI did not show any definitive evidence of disc herniation or significant spinal canal stenosis, moderate disc degeneration with associated osteoarthritic changes, T7 to T8 central disc protrusion versus osteophyte. Pain management also consulted. Status post right SI joint injection. Abdominal ultrasound shows likely hepatic steatosis versus hepatitis, also noted to have right renal lesion which was indeterminant, the computed tomography scan with contrast to exclude solid neoplasm. Liver function improving and the time of discharge. Denies any right upper quadrant pain. Does have a follow-up with PCP with regards to renal mass, no recent change in size. Follow-up with with orthopedic surgery. Patient seen and examined at bedside. Vital signs reviewed and stable. General: nontoxic, no distress, appears at stated age Derm: warm, dry Head: atraumatic, normocephalic, symmetric Eyes: EOMI, no lid lag, anicteric sclera Mouth: no lip lesion, mucus membranes moist Cardiovascular: S1S2 reg, no murmur Lungs: CTA bilateral, no rhonchi, no rales , no accessory muscle use Abdominal: soft, nontender to palpation, no guarding, no appreciable organomegaly Ext: no gross muscle atrophy, no edema, no contractures Neuro: CN II-XI grossly intact, no focal neuro deficits Psych: Alert, oriented, appropriate affect A total of 33 minutes of time were spent preparing this complex discharge summary. Patient was discharged on 02/02/23 at 1047. Patient Condition at Discharge: Stable Plan - Discharge Summary New Discharge Prescriptions: New polyethylene glycoL 3350 [Miralax] 17 gm PO DAILY #30 packet Sennosides-Docusate Sodium [Senokot-S] 2 each PO DAILY #30 tab Continue Omeprazole [PriLOSEC] 20 mg PO HS Gabapentin 300 mg PO TID HYDROcodone/APAP 5-325MG [[place] 5-325] 1 tab PO Q6H PRN #12 tab PRN Reason: Pain Discharge Medication List Gabapentin 300 mg PO TID 01/30/23 [History] Omeprazole [PriLOSEC] 20 mg PO HS 01/30/23 [History] HYDROcodone/APAP 5-325MG [[place] 5-325] 1 tab PO Q6H PRN #12 tab 02/02/23 [Rx] Sennosides-Docusate Sodium [Senokot-S] 2 each PO DAILY #30 tab 02/02/23 [Rx] polyethylene glycoL 3350 [Miralax] 17 gm PO DAILY #30 packet 02/02/23 [Rx] Follow up Appointment(s)/Referral(s): Heath Encinas MD [Primary Care Provider] - 1-2 days Renard Sherman DO [Doctor of Osteopathic Medicine] - 1 Week Patient Instructions/Handouts: Sacroiliitis (ED), Chronic Back Pain (GEN), Sacroiliac Joint Injection (DC) Activity/Diet/Wound Care/Special Instructions: Please see PCP and orthospine surgery. Discharge/Stand Alone Forms: Anes Pain/[place] Instructions Discharge Disposition: HOME SELF-CARE
== END 2023-02-02 11:39 | disposition home or self-care (01) | DRG 552 ==
LOC: EC 17:40 → 6NMEDSUR 19:34 → OBSVTOIN 02-01 13:35
PROVIDERS: ADMIT Internal Medicine; ATTEND Internal Medicine
PROC: 3E0U33Z Introduction of Anti-inflammatory into Joints, Percutaneous Approach (ICD-10-PCS; 2023-02-01)
PROC: 3E0U3BZ Introduction of Anesthetic Agent into Joints, Percutaneous Approach (ICD-10-PCS; principal; 2023-02-01 11:30)
DX: M46.1 Sacroiliitis, not elsewhere classified (principal); K76.0 Fatty (change of) liver, not elsewhere classified; F17.210 Nicotine dependence, cigarettes, uncomplicated; M47.26 Other spondylosis with radiculopathy, lumbar region; G89.29 Other chronic pain; G47.33 Obstructive sleep apnea (adult) (pediatric); K21.9 Gastro-esophageal reflux disease without esophagitis; M51.16 Intervertebral disc disorders with radiculopathy, lumbar region; M48.061 Spinal stenosis, lumbar region without neurogenic claudication; N28.89 Other specified disorders of kidney and ureter; R26.2 Difficulty in walking, not elsewhere classified; Z85.528 Personal history of other malignant neoplasm of kidney; Z88.8 Allergy status to other drugs, medicaments and biological substances; Z90.5 Acquired absence of kidney; Z79.899 Other long term (current) drug therapy; Z87.19 Personal history of other diseases of the digestive system
CPT/HCPCS: 27096; 72157; 72158; 76705; 80053; 80074; 83735; 84100; 85025; 85610; 85730; 96374; 96375; 99285